=== PATIENT | male | born 1980 | race Caucasian/White ===

== ENCOUNTER → 2020-06-18 | Outpatient (CLI) | payer SELFPAY ==
[~2020-06-18] MED LIST: GLYB5TAB5 PO; INSU70DS SC; INSULANT SC
== END ==
LOC: M LABSMTC 08:41
PROVIDERS: ATTEND Pediatrics
DX: Z20.822 Contact with and (suspected) exposure to COVID-19 (principal)

== ENCOUNTER 2020-07-01 19:13 | Inpatient (IN) | payer SELFPAY ==
[~2020-07-01] VITALS: Ht 172.7 cm; Wt 89.4 kg
[2020-07-01 20:09] LABS: BASO % 0.2 % (0.0-1.0); EOS # 0.1 10^3/uL (0.0-0.5); EOS % 0.6 % (0.0-3.0); HEMATOCRIT 46.6 % (42.0-52.0); HEMOGLOBIN 16.3 g/dl (13.5-17.5); LYMPH # 1.3 10^3/uL (1.5-5.0); LYMPH % 7.1 % (24.0-44.0); MEAN CORPUSCULAR HEMOGLOBIN 30.8 pg (27.0-33.0); MEAN CORPUSCULAR VOLUME 87.9 fl (80.0-96.0); MONO # 1.3 10^3/uL (0.0-0.8); MONO % 7.5 % (0.0-5.0); NEUTROPHILS # 14.7 10^3/uL (1.5-8.5); NEUTROPHILS % 83.7 % (36.0-66.0); PLATELET COUNT, AUTOMATED 188 10^3/uL (150-450)
[2020-07-01 20:10] LABS: WHITE BLOOD COUNT 17.6 10^3/uL (4.0-10.0)
[2020-07-01] MEDS ORDERED: CLINDAMYCIN 900 MG in IV 1 EA IV ONE (20:30)
[2020-07-01] MEDS ORDERED: HumuLIN R (REGULAR) INSULIN (NovoLIN R) **100U/ML** PER UNIT IV ONE (20:30)
[2020-07-01] MEDS ORDERED: NS 1,000 ML IV ONE (20:30)
[2020-07-01] MEDS ORDERED: ONDANSETRON 4MG/2ML VIAL IV ONE (20:45)
[2020-07-01] MEDS ORDERED: MORPHINE 4 MG/ML 1ML VIAL/SYRINGE (J2270) IV ONE (20:45)
--- NOTE | 2020-07-01 20:45 | REPVR ---
PROCEDURE INFORMATION: Exam: US Scrotum Exam date and time: 07/01/2020 8:38 PM Age: 40 years old Clinical indication: Scrotum pain; Additional info: Left testicular pain TECHNIQUE: Imaging protocol: Real-time ultrasound of the scrotum and contents with color Doppler and image documentation. COMPARISON: No relevant prior studies available. FINDINGS: Right testicle: Right testis measures 4.2 x 2.1 x 3.3 cm. Normal flow. Resistive index 0.45. Normal texture. Left testicle: Left testis measures 5 x 2 x 3.1 cm. Normal texture. Mildly hypervascular flow using color flow Doppler. Resistive index 0.54. Epididymides: Right epididymal head measures 7.1 mm. Left epididymal head measures 9 mm. Scrotum: Normal. IMPRESSION: Mildly hypervascular left testis, findings which can indicate orchitis or changes related to torsion detorsion injury in the appropriate clinical setting. Electronically signed by: Shan Moore On 07/01/2020 20:45:25 PM
[2020-07-01 20:56] LABS: VENOUS BASE EXCESS -10.7 (-2.0-2.0); VENOUS HCO3 15.1 MEQ/L (23.0-27.0); VENOUS O2 SATURATION 74.9 % (60.0-80.0); VENOUS PARTIAL PRESSURE CO2 34.1 mmHg (38.0-50.0); VENOUS PARTIAL PRESSURE O2 39.3 mmHg (30.0-50.0); VENOUS PH 7.265 UNITS (7.330-7.430); VENOUS STANDARD HCO3 15.8 MEQ/L; VENOUS TOTAL CO2 16.2 MEQ/L (24.0-28.0)
[2020-07-01 21:14] LABS: CHLAMYDIA DNA AMPLIFICATION NEGATIVE (NEGATIVE); GC DNA AMPLIFICATION NEGATIVE (NEGATIVE)
[2020-07-01 21:20] LABS: HEMOGLOBIN A1c 8.5 %
--- NOTE | 2020-07-01 21:41 | HPEPDOC ---
General Date of Admission Date of Service: Jul 01, 2020 Other Providers no PCP, will need to be connected to care on discharge Attending Physician: Albert Perez MD Chief Complaint The patient is a 40-year-old male admitted with a reason for visit of Testicular Pain. Source: Patient Exam Limitations: No limitations History of Present Illness Mr. Holland reports that 2 days prior to admission he did notice a hard spot on what he believed was his left testicle. Yesterday about mid day he started to have more testicular and scrotal pain while at work. Today, the day of admission, he woke with worse pain and realized he needed to seek care. He denies any scrotal trauma or scratches or maceration to the area including jock itch. He does report he had an unprotected sexual encounter about 3 weeks ago. In discussing his past medical history he mentions that he was told he had type 2 diabetes in the past. He was treated with insulin at that time. After that he lost about 100 pounds and thought his diabetes went away. He has not had routine medical care for the last 10-12 years and there is no physician who is regularly monitoring his chemistries. Home Medications No Active Prescriptions or Reported Meds Allergies Coded Allergies: cefaclor (Verified Allergy, Intermediate, unknown, 07/01/20) Past Medical History Medical History Type 2 diabetes Surgical History Hernia repair when he was 6 weeks old Family History His father in his mid 50s but he did not have much contact with them for about 20 years he's not sure exactly why he . His mother at 33 after having recurrent breast cancer. He has a brother who is alive and well except fo r sequelae related to gunshot wounds. He has 3 sons who have no known medical problems. 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 He lives alone. A-FIB/CHADSVASC A-FIB History Current/History of A-Fib/PAF?: No Current PO Anticoag Therapy: No Review of Systems Constitutional: Reports: Malaise; Denies: Chills, Fever, Night Sweats Eyes: Denies: Pain, Vision change Skin: Reports: Other (redness on his left skip-scrotum); Denies: Itching, Breakdown Pulmonary: Denies: Dyspnea, Cough Cardiovascular: Reports: Lt Headedness; Denies: Chest Pain, Palpitations Gastrointestinal: Reports: Nausea, Vomiting; Denies: Abdominal Pain, Diarrhea Genitourinary: Denies: Dysuria, Frequency, Incontinence, Hematuria Endocrine: Denies: Polydipsia, Polyphagia, Polyuria Neurological: Denies: Weakness, Numbness, Change in speech, Confusion Psych: Reports: Mood Normal; Denies: Depression, Memory Issues Physical Examination General Exam: Positive: Alert, Cooperative, No Acute Distress (however he did vomit once in the middle of our interview) Eye Exam: Positive: PERRLA, Conjunctiva & lids normal, EOMI; Negative: Sclera icteric ENT Exam: Positive: Atraumatic, Mucous membr. moist/pink, Pharynx Normal Neck Exam: Positive: Supple; Negative: Lymphadenopathy Chest Exam: Positive: Clear to auscultation, Normal air movement Heart Exam: Positive: Tachycardic, Regular Rhythm, Normal S1, Normal S2; Negative: Murmurs, Rubs Abdomen Exam: Positive: Normal bowel sounds, Soft; Negative: Tenderness Extremity Exam: Positive: Normal pulses; Negative: Edema Skin Exam: Positive: Nl turgor and temperature; Negative: Breakdown, Lesion Neuro Exam: Positive: Normal Speech, Normal Tone Psych Exam: Positive: Mental status NL, Mood NL, Oriented x 3 Other physical findings Closer examination of his genital region reveals scrotal wall thickness and moderate erythema over the left hemiscrotum. The left testicle is mildly palpably tender, but is able to be moved away from the area of edema and erythema without significant pain. The left testicle and hemiscrotum are entirely normal. Cellulitis does not extend onto the penis or to the perineum at this time. The area was marked while the patient was in minor treatment so we can monitor for extension of the cellulitic changes. Vital Signs Vital Signs Date Time Temp Pulse Resp B/P (MAP) Pulse Ox O2 Delivery O2 Flow Rate FiO2 07/01/20 21:09 18 07/01/20 19:59 07/01/20 19:14 97.5 100 97 Room Air Laboratory Data Labs 24H Laboratory Tests 2 07/01/20 19:33: Chlamydia trachomatis DNA (AURA) NEGATIVE, Neisseria gonorrhoeae DNA (AURA) NEGATIVE, Trichomonas vaginalis (PCR) NOT DETECTED 07/01/20 19:34: Urine Color YELLOW, Urine Appearance CLEAR, Urine pH 5.0, Urine Specific [place] 1.029, Urine Protein 2+H, Urine Glucose (UA) 3+H, Urine Ketones 2+H, Urine Blood 1+H, Urine Nitrite NEGATIVE, Urine Bilirubin NEGATIVE, Urine Urobilinogen 0.2, Urine Leukocyte Esterase NEGATIVE, Urine WBC (Auto) 1, Urine RBC (Auto) 1, Urine Hyaline Casts (Auto) 0, Urine Bacteria (Auto) NEGATIVE, Urine Squamous Epithelial Cells 0, Urine Mucus (Auto) SMALL, Urine Sperm (Auto) 07/01/20 19:50: Immature Granulocyte % (Auto) 0.9, Neutrophils (%) (Auto) 83.7H, Lymphocytes (%) (Auto) 7.1L, Monocytes (%) (Auto) 7.5H, Eosinophils (%) (Auto) 0.6, Basophils (%) (Auto) 0.2, Neutrophils # (Auto) 14.7H, Lymphocytes # (Auto) 1.3L, Monocytes # (Auto) 1.3H, Eosinophils # (Auto) 0.1, Basophils # (Auto) 0.0, Nucleated Red Blood Cells % (auto) 0.0 07/01/20 20:36: Blood Gas Bicarbonate Standard 15.8, Venous Blood pH 7.265L, Venous Blood Partial Pressure CO2 34.1L, Venous Blood Partial Pressure O2 39.3, Venous Blood Total Carbon Dioxide 16.2L, Venous Blood HCO3 15.1L, Venous Blood Oxygen Saturation 74.9, Venous Blood Base Excess -10.7L, Estimated Mean Plasma Glucose 197H, Hemoglobin A1c 8.5 07/01/20 21:26: CBC/BMP Laboratory Tests 07/01/20 19:50 Microbiology Microbiology 07/01/20 Blood Culture, Received Pending 07/01/20 Blood Culture, Received Pending Problems (1) DKA (diabetic ketoacidoses) Status: Acute Problem Text: His DKA is mild to moderate. His blood glucose level is not that elevated at 274, however his pH is 7.2 on a VBG and his bicarbonate is 15. He has an anion gap of 23 but his osmolarity is at the upper end of normal. He is receiving a 1 L bolus of normal saline at this time. After that I will continue on 500 mL an hour of half normal saline with 20 mEq of potassium per liter. We'll monitor his chemistries at least every 2 hours. We'll monitor his fingersticks every 2 hours. As I think he is reasonably hydrated at this time, I'm going to start him with a dose of subcutaneous short acting insulin at 0.3 units per kilogram. Will monitor his blood glucose levels carefully. If this does not bring about improvement, I'll need to start him on insulin drip. (2) Cellulitis of scrotum Status: Acute Problem Text: This seemed to come on relatively quickly. I'm not sure the etiology, but it doesn't seem to be STD related, based on his labs at this time. Therefore I'm going to assume its typical skin nigel that somehow gained access to the area. Since he has an allergy to cephalosporins I'm going to use clindamycin. We'll need to monitor his carefully to make sure the clindamycin is effectively controlling his cellulitis. He does not have evidence of gangrene or necrosis at this time, however doesn't take very long in this area body for infection to spread. Certainly his elevated blood glucose levels make him more vulnerable to infection. (3) SIRS (systemic inflammatory response syndrome) Problem Text: He does meet SIRS criteria based on tachycardia and white count. I ordered a lactic acid level. I have ordered blood cultures to evaluate for sepsis. Plan / VTE VTE Prophylaxis Ordered?: Yes Plan Advanced Directives: Health Care Proxy (HCP) (he verbally identifies his cousin, Maria Saavedra , as his alternate medical decision maker if he was unable to make his own medical decisions. He wishes to be FULL code.) Albert Perez MD Jul 01, 2020 21:41
[2020-07-01] MEDS ORDERED: HumaLOG INSULIN (NovoLOG) PER UNIT SC STA ×2 (21:49→21:55)
[2020-07-01 21:57] LABS: OSMOLALITY SERUM 293 MOSM/KG (275-295)
[2020-07-01 22:04] LABS: ACETONE/KETONE > 46.00 MG/DL (<2.81)
[2020-07-01] MEDS ORDERED: MAALOX 30 ML SUSP *UDC PO PRN (22:15)
[2020-07-01 22:54] LABS: VENOUS BASE EXCESS -12.8 (-2.0-2.0); VENOUS HCO3 13.2 MEQ/L (23.0-27.0); VENOUS O2 SATURATION 69.8 % (60.0-80.0); VENOUS PARTIAL PRESSURE CO2 31.3 mmHg (38.0-50.0); VENOUS PARTIAL PRESSURE O2 38.2 mmHg (30.0-50.0); VENOUS PH 7.242 UNITS (7.330-7.430); VENOUS STANDARD HCO3 14.3 MEQ/L; VENOUS TOTAL CO2 14.1 MEQ/L (24.0-28.0)
[2020-07-01 22:56] LABS: MAGNESIUM LEVEL 2.3 MG/DL (1.8-2.4)
[2020-07-01] MEDS ORDERED: ONDANSETRON 4MG/2ML VIAL IV PRN (23:00)
[2020-07-01 23:18] LABS: BLOOD UREA NITROGEN 17 MG/DL (7-18); CREATININE FOR GFR 0.92 MG/DL (0.70-1.30); GLOMERULAR FILTRATION RATE > 60.0 (>60); GLUCOSE, FASTING 232 MG/DL (70-100)
[2020-07-01 23:19] LABS: ALBUMIN 3.4 GM/DL (3.2-5.2); CALCIUM LEVEL 8.6 MG/DL (8.5-10.1); CARBON DIOXIDE LEVEL 16 MEQ/L (21-32); CHLORIDE LEVEL 99 MEQ/L (98-107); PHOSPHORUS LEVEL 3.2 MG/DL (2.5-4.9); SODIUM LEVEL 131 MEQ/L (136-145)
[2020-07-02] MEDS: KCL 20MEQ IN 0.45NS 1000ML 1,000 ML IV SCH ×3 (00:34→02:00)
[2020-07-02] MEDS: ACETAMINOPHEN TAB 650MG DOSE (2X325MG) PO PRN ×4 (00:35→18:53)
[2020-07-02] MEDS ORDERED: HumuLIN R (REGULAR) INSULIN (NovoLIN R) **100U/ML** PER UNIT SC STA ×2 (00:41→06:25)
[2020-07-02 01:23] LABS: VENOUS BASE EXCESS -10.1 (-2.0-2.0); VENOUS HCO3 15.1 MEQ/L (23.0-27.0); VENOUS O2 SATURATION 95.2 % (60.0-80.0); VENOUS PARTIAL PRESSURE CO2 31.9 mmHg (38.0-50.0); VENOUS PH 7.293 UNITS (7.330-7.430); VENOUS STANDARD HCO3 16.6 MEQ/L; VENOUS TOTAL CO2 16.1 MEQ/L (24.0-28.0)
[2020-07-02 01:40] VITALS: BP 158/100
[2020-07-02 01:54] LABS: BLOOD UREA NITROGEN 15 MG/DL (7-18); CALCIUM LEVEL 8.1 MG/DL (8.5-10.1); CARBON DIOXIDE LEVEL 17 MEQ/L (21-32); CHLORIDE LEVEL 103 MEQ/L (98-107); CREATININE FOR GFR 0.86 MG/DL (0.70-1.30); GLOMERULAR FILTRATION RATE > 60.0 (>60); GLUCOSE, FASTING 168 MG/DL (70-100); POTASSIUM SERUM 4.3 MEQ/L (3.5-5.1); SODIUM LEVEL 132 MEQ/L (136-145)
[2020-07-02 04:00] VITALS: BP 166/90
[2020-07-02] MEDS ORDERED: CLINDAMYCIN 900 MG in IV 1 EA IV SCH (05:00)
[2020-07-02 05:42] LABS: VENOUS BASE EXCESS -9.8 (-2.0-2.0); VENOUS HCO3 14.4 MEQ/L (23.0-27.0); VENOUS O2 SATURATION 97.9 % (60.0-80.0); VENOUS PARTIAL PRESSURE CO2 27.6 mmHg (38.0-50.0); VENOUS PARTIAL PRESSURE O2 93.8 mmHg (30.0-50.0); VENOUS PH 7.334 UNITS (7.330-7.430); VENOUS STANDARD HCO3 16.8 MEQ/L; VENOUS TOTAL CO2 15.2 MEQ/L (24.0-28.0)
[2020-07-02 06:05] LABS: BASO % 0.2 % (0.0-1.0); EOS % 0.2 % (0.0-3.0); HEMATOCRIT 41.3 % (42.0-52.0); LYMPH # 1.3 10^3/uL (1.5-5.0); LYMPH % 8.3 % (24.0-44.0); MEAN CORPUSCULAR HEMOGLOBIN 30.1 pg (27.0-33.0); MEAN CORPUSCULAR HGB CONC 34.4 g/dl (32.0-36.5); MEAN CORPUSCULAR VOLUME 87.5 fl (80.0-96.0); MONO # 1.5 10^3/uL (0.0-0.8); MONO % 9.3 % (0.0-5.0); NEUTROPHILS # 12.7 10^3/uL (1.5-8.5); PLATELET COUNT, AUTOMATED 172 10^3/uL (150-450); RED BLOOD COUNT 4.72 10^6/uL (4.30-6.10)
[2020-07-02 06:08] LABS: BLOOD UREA NITROGEN 13 MG/DL (7-18); CALCIUM LEVEL 7.9 MG/DL (8.5-10.1); CARBON DIOXIDE LEVEL 16 MEQ/L (21-32); CHLORIDE LEVEL 103 MEQ/L (98-107); CREATININE FOR GFR 0.73 MG/DL (0.70-1.30); GLOMERULAR FILTRATION RATE > 60.0 (>60); GLUCOSE, FASTING 133 MG/DL (70-100); POTASSIUM SERUM 4.1 MEQ/L (3.5-5.1); SODIUM LEVEL 131 MEQ/L (136-145)
[2020-07-02 06:15] LABS: WHITE BLOOD COUNT 15.6 10^3/uL (4.0-10.0)
[2020-07-02 06:16] LABS: HEMOGLOBIN 14.2 g/dl (13.5-17.5)
[2020-07-02] MEDS: KCL 20MEQ IN D5/0.45NS 1000ML 1,000 ML IV SCH ×3 (07:05→15:32)
[2020-07-02 07:31] VITALS: BP 137/87
[2020-07-02 07:35] LABS: ACETONE/KETONE 28.39 MG/DL (<2.81)
[2020-07-02] MEDS ORDERED: ENOXAPARIN 40MG/0.4ML SYRINGE (J1650 PER 10MG) SC SCH (09:00)
[2020-07-02 09:17] LABS: ALBUMIN 2.9 GM/DL (3.2-5.2); BLOOD UREA NITROGEN 11 MG/DL (7-18); CARBON DIOXIDE LEVEL 16 MEQ/L (21-32); CHLORIDE LEVEL 103 MEQ/L (98-107); CREATININE FOR GFR 0.65 MG/DL (0.70-1.30); GLOMERULAR FILTRATION RATE > 60.0 (>60); GLUCOSE, FASTING 118 MG/DL (70-100); PHOSPHORUS LEVEL 1.7 MG/DL (2.5-4.9); POTASSIUM SERUM 4.4 MEQ/L (3.5-5.1); SODIUM LEVEL 131 MEQ/L (136-145)
[2020-07-02] MEDS: PANTOPRAZOLE 40MG VIAL (C9113 PER 1) IV SCH (09:20)
[2020-07-02] MEDS: MEROPENEM INJ 1 GM in IV 1 EA IV SCH ×2 (10:04→18:52)
--- NOTE | 2020-07-02 10:09 | IPNPDOC ---
Text Note Date of Service The patient was seen on 07/02/20. NOTE Subjective: Patient seen and examined at bedside. No acute overnight events reported. Patient has no new medical complaints this morning. Still notes pain in his scrotum . Objective: General: NAD, lying comfortably in bed HEENT: NC/AT, EOMI Lungs: CTA B/L Heart: +S1S2, tachy, possible systolic murmur Abd: soft, NT, +BS Ext: no edema A/P: 40 year old male for one day history of scrotal pain, no clear modifying factors, denies trauma, with past medical history of diabetes, poor medical follow up. #DKA - improving with subcutaneous insulin - will continue with FS and subcutaneous management #scrotal pain - ultrasound noted - discussed with urology - assistance appreciated - consultation pending - change antibiotics to meropenem/doxy - patient has cephalosporin allergy listed - he states this is from childhood and remembers a rash as a side effect #tachycardia - possible murmur - patient not aware of any history of murmur - check ECG - check echocardiogram #recent +COVID - respiratory panel on 06/18/20 was +COVID - patient states was routine test - patient had no specific respiratory symptoms - discussed with infection control - given asymptomatic and duration >21 days no additional precautions needed #DVT prophylaxis - lovenox ordered on admission ADDENDUM: Discussed with urology - continue to monitor for now. Re-assess in am, possible OR if worsens. NPO after midnight, hold Lovenox. 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 VS,[place], I+O VS, Rosa, I+O Laboratory Tests 07/01/20 19:50 07/01/20 22:45 07/02/20 01:18 07/02/20 05:32 07/02/20 08:34 Vital Signs Date Time Temp Pulse Resp B/P (MAP) Pulse Ox O2 Delivery O2 Flow Rate FiO2 07/02/20 07:31 98.4 124 18 137/87 (104) 97 Room Air I&O- Last 24 Hours up to 6 AM 07/02/20 06:00 Intake Total 1050 ml Output Total 0 ml Balance 1050 ml EUSEBIO SIEGEL MD Jul 02, 2020 10:09
[2020-07-02] MEDS: DOXYCYCLINE HYCLATE 100 MG in D5W MINI-BAG PLUS 100 ML IV SCH ×2 (10:49→22:56)
[2020-07-02 11:35] VITALS: BP 150/93
[2020-07-02] MEDS ORDERED: HumaLOG INSULIN (NovoLOG) PER UNIT SC ONE ×2 (12:30→15:00)
--- NOTE | 2020-07-02 14:29 | CR.PDOC ---
General Date of Consultation: Jul 02, 2020 Referring Provider: EUSEBIO SIEGEL MD Consultation REASON FOR CONSULTATION/CHIEF COMPLAINT: Left scrotal cellulites HISTORY OF PRESENT ILLNESS: Pt has a several day history of left scotal pain and swelling. The pain was getting progressively worse so he came to the ER. He was afebrile but had a wbc of 17.6 on admission. After Clindamycin overnight this came down to 15.6. Scrotal US 07/01/20 showed hypervascularity and no abscess formation. He had a h/o of diabetes but thought after he lost 100 lbs that he was cured but he was found on admission to be in ketoacidosis. He denies any urethral discharge, rectal pain, h/o kidney stones or other irritative or obstructive voiding symptoms. ALLERGIES: Please see below. HOME MEDICATIONS: Please see below. PAST MEDICAL HISTORY: -Type 2 Diabetes Untreated PAST SURGICAL HISTORY: -Hernia Repair FAMILY HISTORY: Father: mid 50's ? why, not in contact Mother: 33 from [place] Cancer Brother gunshot wound SOCIAL HISTORY: Marital status and/or living arrangements: Smoke 1ppd for 23 years Sober for one month- was a daily beer drinker REVIEW OF SYSTEMS: 12 system review neg except for HPI. Pt was tested for work and was COVID + 06/18/20. Quaranteened for 21 days. No complaints no. No pulmonary symptoms. Denies fever. PHYSICAL EXAMINATION: VITAL SIGNS: Please see below. GENERAL APPEARANCE: well developed, well nuroushed. Pt does not appear acutely ill. HEENT: Eyes PERRLA. No lymphadenopathy RESPIRATORY: Breathing without use of accesory muscles. Clear CARDIOVASCULAR: RRR ABDOMEN: Soft. NT. No erythema EXTREMITIES: No cyanosis, clubbing, or edema NEUROLOGICAL: Non focal PSYCHIATRIC: A+Ox3 with normal mood and affect Genitourinary: He is circumised with normal meatal opening and no discharge. His left scrotal sac is erythematous, warm to touch, and left testicle is enlar ged and acutely tender to touch. No scrotal thickening or fluctuation or masses felt. LABORATORY DATA: Please see below. 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 -Diabeic Ketoacidosis -Systemic inflammatory response syndrome Plan: -Await blood cultures -Change antibiotics to Rocephin/Mirepenam -Scrotal elevation -Area of erythema was demarcated and if erythema spreading urology to be called KATHERINE, also call for fever or worsening or clinical presentation -Re-evaluate in AM and if there is no significant improvement after antibiotic therapy consider scrotal exploration with possible incision and drainage since oftentimes Scrotal US may not show an abscess Vital Signs/I&O Vital Signs Date Time Temp Pulse Resp B/P (MAP) Pulse Ox O2 Delivery O2 Flow Rate FiO2 07/02/20 11:35 99.3 118 18 150/93 (112) 99 Room Air I&O- Last 24 Hours up to 6 AM 07/02/20 06:00 Intake Total 1050 ml Output Total 0 ml Balance 1050 ml Laboratory Data Labs 24H Laboratory Tests 2 07/01/20 19:33: Chlamydia trachomatis DNA (AURA) NEGATIVE, Neisseria gonorrhoeae DNA (AURA) NEGATIVE, Trichomonas vaginalis (PCR) NOT DETECTED 07/01/20 19:34: Urine Color YELLOW, Urine Appearance CLEAR, Urine pH 5.0, Urine Specific [place] 1.029, Urine Protein 2+H, Urine Glucose (UA) 3+H, Urine Ketones 2+H, Urine Blood 1+H, Urine Nitrite NEGATIVE, Urine Bilirubin NEGATIVE, Urine Urobilinogen 0.2, Urine Leukocyte Esterase NEGATIVE, Urine WBC (Auto) 1, Urine RBC (Auto) 1, Urine Hyaline Casts (Auto) 0, Urine Bacteria (Auto) NEGATIVE, Urine Squamous Epithelial Cells 0, Urine Mucus (Auto) SMALL, Urine Sperm (Auto) 07/01/20 19:50: Immature Granulocyte % (Auto) 0.9, Neutrophils (%) (Auto) 83.7H, Lymphocytes (%) (Auto) 7.1L, Monocytes (%) (Auto) 7.5H, Eosinophils (%) (Auto) 0.6, Basophils (%) (Auto) 0.2, Neutrophils # (Auto) 14.7H, Lymphocytes # (Auto) 1.3L, Monocytes # (Auto) 1.3H, Eosinophils # (Auto) 0.1, Basophils # (Auto) 0.0, Nucleated Red Blood Cells % (auto) 0.0 07/01/20 20:00: POC Glucose (Misc Panel) 274H, POC Sodium (Misc Panel) 131L, POC Potassium (Misc Panel) 4.0, POC Chloride (Misc Panel) 98, POC Total CO2 (Misc Panel) 15.0L, POC Blood Urea Nitrogen (Misc Panel 16, POC Ionized Calcium (Misc Panel) 4.5, POC Creatinine (Misc Panel) 0.6, POC Hematocrit (Misc Panel) 49.0 07/01/20 20:36: Blood Gas Bicarbonate Standard 15.8, Venous Blood pH 7.265L, Venous Blood Partial Pressure CO2 34.1L, Venous Blood Partial Pressure O2 39.3, Venous Blood Total Carbon Dioxide 16.2L, Venous Blood HCO3 15.1L, Venous Blood Oxygen S aturation 74.9, Venous Blood Base Excess -10.7L, Estimated Mean Plasma Glucose 197H, Hemoglobin A1c 8.5, Osmolality 293, Magnesium Level 2.3, B-Hydroxybutyrate > 46.00H 07/01/20 21:26: Coronavirus (COVID-19)(PCR) NEGATIVE 07/01/20 21:59: Bedside Glucose (Misc Panel) 220H 07/01/20 22:45: Blood Gas Bicarbonate Standard 14.3, Venous Blood pH 7.242L, Venous Blood Partial Pressure CO2 31.3L, Venous Blood Partial Pressure O2 38.2, Venous Blood Total Carbon Dioxide 14.1L, Venous Blood HCO3 13.2L, Venous Blood Oxygen Saturation 69.8, Venous Blood Base Excess -12.8L, Anion Gap 16, Glomerular Filtration Rate > 60.0, Lactic Acid Level 1.2, Calcium Level 8.6, Phosphorus Level 3.2, Albumin 3.4 07/02/20 00:06: Bedside Glucose (Misc Panel) 200H 07/02/20 01:18: Blood Gas Bicarbonate Standard 16.6, Venous Blood pH 7.293L, Venous Blood Partial Pressure CO2 31.9L, Venous Blood Partial Pressure O2 73.0H, Venous Blood Total Carbon Dioxide 16.1L, Venous Blood HCO3 15.1L, Venous Blood Oxygen Saturation 95.2H, Venous Blood Base Excess -10.1L, Anion Gap 12, Glomerular Filtration Rate > 60.0, Calcium Level 8.1L 07/02/20 01:57: Bedside Glucose (Misc Panel) 151H 07/02/20 04:01: Bedside Glucose (Misc Panel) 142H 07/02/20 05:32: Immature Granulocyte % (Auto) 1.0, Neutrophils (%) (Auto) 81.0H, Lymphocytes (%) (Auto) 8.3L, Monocytes (%) (Auto) 9.3H, Eosinophils (%) (Auto) 0.2, Basophils (%) (Auto) 0.2, Neutrophils # (Auto) 12.7H, Lymphocytes # (Auto) 1.3L, Monocytes # (Auto) 1.5H, Eosinophils # (Auto) 0.0, Basophils # (Auto) 0.0, Nucleated Red Blood Cells % (auto) 0.0, Blood Gas Bicarbonate Standard 16.8, Venous Blood pH 7.334, Venous Blood Partial Pressure CO2 27.6L, Venous Blood Partial Pressure O2 93.8H, Venous Blood Total Carbon Dioxide 15.2L, Venous Blood HCO3 14.4L, Venous Blood Oxygen Saturation 97.9H, Venous Blood Base Excess -9.8L, Anion Gap 12, Glomerular Filtration Rate > 60.0, Calcium Level 7.9L, C-Reactive Protein, Quantitative 15.80H, B-Hydroxybutyrate 28.39H 07/02/20 05:45: Bedside Glucose (Misc Panel) 144H 07/02/20 08:34: Anion Gap 12, Glomerular Filtration Rate > 60.0, Calcium Level 8.0L, Phosphorus Level 1.7#L, Albumin 2.9L 07/02/20 09:17: Bedside Glucose (Misc Panel) 127H 07/02/20 12:08: Bedside Glucose (Misc Panel) 214H 07/02/20 14:09: Bedside Glucose (Misc Panel) 277H CBC/BMP Laboratory Tests 07/01/20 19:50 07/01/20 22:45 07/02/20 01:18 07/02/20 05:32 07/02/20 08:34 Microbiology Microbiology 07/01/20 Blood Culture, Received Pending 07/01/20 Blood Culture, Received Pending 07/01/20 Blood Culture, Received Pending Allergies Coded Allergies: cefaclor (Verified Allergy, Intermediate, unknown, 07/01/20) Home Medications No Active Prescriptions or Reported Meds SIERRA MONTERO MD Jul 02, 2020 14:29
[2020-07-02 15:29] LABS: BLOOD UREA NITROGEN 9 MG/DL (7-18); CALCIUM LEVEL 8.1 MG/DL (8.5-10.1); CARBON DIOXIDE LEVEL 17 MEQ/L (21-32); CHLORIDE LEVEL 104 MEQ/L (98-107); CREATININE FOR GFR 0.76 MG/DL (0.70-1.30); GLOMERULAR FILTRATION RATE > 60.0 (>60); GLUCOSE, FASTING 235 MG/DL (70-100); POTASSIUM SERUM 3.9 MEQ/L (3.5-5.1); SODIUM LEVEL 131 MEQ/L (136-145)
[2020-07-02 15:39] VITALS: BP 139/91
[2020-07-02] MEDS ORDERED: GLUCOSE 4GM CHEW TABLET PO PRN (16:00)
[2020-07-02] MEDS ORDERED: DEXTROSE 50% 50 ML SYRINGE IV PRN (16:00)
[2020-07-02] MEDS ORDERED: GLUCAGON INJ 1MG VIAL SC PRN (16:00)
[2020-07-02] MEDS: HumaLOG INSULIN (NovoLOG) PER UNIT SC SCH (18:53)
[2020-07-02 20:00] VITALS: BP 134/87
[2020-07-02 21:45] LABS: ACETONE/KETONE 24.51 MG/DL (<2.81); BLOOD UREA NITROGEN 9 MG/DL (7-18); CALCIUM LEVEL 8.1 MG/DL (8.5-10.1); CARBON DIOXIDE LEVEL 18 MEQ/L (21-32); CHLORIDE LEVEL 105 MEQ/L (98-107); CREATININE FOR GFR 0.64 MG/DL (0.70-1.30); GLOMERULAR FILTRATION RATE > 60.0 (>60); GLUCOSE, FASTING 195 MG/DL (70-100); POTASSIUM SERUM 4.1 MEQ/L (3.5-5.1); SODIUM LEVEL 133 MEQ/L (136-145)
[2020-07-03] VITALS (13 sets, daily range): BP systolic 121–154; BP diastolic 75–93
[2020-07-03] MEDS: HumaLOG INSULIN (NovoLOG) PER UNIT SC SCH ×4 (00:42→18:25)
[2020-07-03] MEDS: ACETAMINOPHEN TAB 650MG DOSE (2X325MG) PO PRN ×2 (00:42→07:44)
[2020-07-03] MEDS: MEROPENEM INJ 1 GM in IV 1 EA IV SCH ×3 (01:51→18:23)
[2020-07-03 06:13] LABS: HEMOGLOBIN 13.6 g/dl (13.5-17.5); MEAN CORPUSCULAR HEMOGLOBIN 30.8 pg (27.0-33.0); MEAN CORPUSCULAR HGB CONC 34.9 g/dl (32.0-36.5); MEAN CORPUSCULAR VOLUME 88.2 fl (80.0-96.0); PLATELET COUNT, AUTOMATED 160 10^3/uL (150-450); RED BLOOD COUNT 4.42 10^6/uL (4.30-6.10); WHITE BLOOD COUNT 15.1 10^3/uL (4.0-10.0)
[2020-07-03 06:46] LABS: BLOOD UREA NITROGEN 7 MG/DL (7-18); CALCIUM LEVEL 8.2 MG/DL (8.5-10.1); CARBON DIOXIDE LEVEL 15 MEQ/L (21-32); CHLORIDE LEVEL 104 MEQ/L (98-107); CHOLESTEROL LEVEL 103 MG/DL (<200); CHOLESTEROL RISK RATIO 3.218 (<5); CREATININE FOR GFR 0.62 MG/DL (0.70-1.30); GLOMERULAR FILTRATION RATE > 60.0 (>60); GLUCOSE, FASTING 156 MG/DL (70-100); HDL CHOLESTEROL 32 MG/DL (>40); LDL CHOLESTEROL 54 MG/DL (<100); NON-HDL-C 71 MG/DL; POTASSIUM SERUM 4.1 MEQ/L (3.5-5.1); SODIUM LEVEL 134 MEQ/L (136-145); TRIGLYCERIDES LEVEL 83 MG/DL (<150)
--- NOTE | 2020-07-03 08:21 | IPNPDOC ---
Text Note Date of Service The patient was seen on 07/03/20. NOTE Subjective: Patient seen and examined at bedside. No acute overnight events reported. Patient has no new medical complaints this morning. Still notes pain in his scrotum . Objective: General: NAD, lying comfortably in bed HEENT: NC/AT, EOMI Lungs: CTA B/L Heart: +S1S2, tachy, possible systolic murmur Abd: soft, NT, +BS Ext: no edema A/P: 40 year old male for one day history of scrotal pain, no clear modifying factors, denies trauma, with past medical history of diabetes, poor medical follow up. #DKA - improving with subcutaneous insulin - will continue with FS and subcutaneous management #scrotal pain - fevers overnight - will check blood cultures, urine cultures - leukocytosis minimally improved - ultrasound noted - discussed with urology - assistance appreciated - antibiotics to meropenem/doxy - day #2 - patient has cephalosporin allergy listed - he states this is from childhood and remembers a rash as a side effect #tachycardia - possible murmur - patient not aware of any history of murmur - check ECG - check echocardiogram #recent +COVID - respiratory panel on 06/18/20 was +COVID - patient states was routine test - patient had no specific respiratory symptoms - discussed with infection control - given asymptomatic and duration >21 days no additional precautions needed #DVT prophylaxis - lovenox ordered on admission VS,Fishbone, I+O VS, Fishbone, I+O Laboratory Tests 07/02/20 08:34 07/02/20 14:50 07/02/20 21:00 07/03/20 06:01 Vital Signs Date Time Temp Pulse Resp B/P (MAP) Pulse Ox O2 Delivery O2 Flow Rate FiO2 07/03/20 07:46 97.6 118 16 154/81 (105) 99 Room Air I&O- Last 24 Hours up to 6 AM 07/03/20 06:00 Intake Total 1430 ml Output Total 3450 ml Balance -2020 ml EUSEBIO SIEGEL MD Jul 03, 2020 08:21
[2020-07-03] MEDS: PANTOPRAZOLE 40MG VIAL (C9113 PER 1) IV SCH (09:10)
[2020-07-03] MEDS ORDERED: propofoL 200 MG/20 ML VIAL As Ordered ONE (09:34)
[2020-07-03] MEDS ORDERED: LIDOCAINE 2% 100MG/5ML SDV (FOR ANES.) As Ordered ONE (09:34)
[2020-07-03] MEDS ORDERED: MIDAZOLAM INJ 2MG/2ML VIAL (J2250 PER 1MG) As Ordered ONE (09:34)
[2020-07-03] MEDS ORDERED: fentaNYL 100 MCG/2 ML INJECTION (J3010) As Ordered ONE ×2 (09:34→10:02)
[2020-07-03] MEDS ORDERED: SLF 3 ML SYR IV PRN (10:00)
[2020-07-03] MEDS ORDERED: dexameTHASONE 4 MG/ML 1ML VIAL (J1100 PER 1MG) As Ordered ONE (10:13)
[2020-07-03] MEDS ORDERED: ACETAMINOPHEN 1000MG 100ML IV BTL (OFIRMEV) (J0131 PER 10MG) As Ordered ONE (10:13)
[2020-07-03] MEDS ORDERED: ONDANSETRON 4MG/2ML VIAL As Ordered ONE (10:13)
[2020-07-03] MEDS ORDERED: KETOROLAC 60MG 2ML VIAL As Ordered ONE (10:13)
--- NOTE | 2020-07-03 11:28 | ROOPDOC ---
[facility] Report Of Operation Report of Operation DATE OF PROCEDURE: 07/03/20 PREPROCEDURE DIAGNOSES: Scrotal cellulitis with early Kimberli's gangrene POSTPROCEDURE DIAGNOSES: Scrotal abscess, scrotal cellulitis, and early Fou rnier's gangrene PROCEDURE: Incision and drainage of scrotum with debridement. Cystoscopy. SURGEON: Tonie Montero MD TRAILER STEERER: None ANESTHESIA: General ESTIMATED BLOOD LOSS: Approximately 3 mL. COMPLICATIONS: None REMARKS: Abscess was tracking of towards the left inguinal area and there was skin that needed to be debrided PROCEDURE NOTE: Patient is a 40-year-old gentleman who was admitted with left scrotal pain and an elevated white blood count. A testicular ultrasound showed hypervascularity. On examination yesterday he did have erythema of the scrotal skin and significant swelling. It was decided if this did not improve after antibiotics that we would bring him urgently to the operating room. Last night he spiked a temperature of 102 and this morning his exam was unchanged so was decided to bring him to the operating room. All alternatives, options, risks, benefits were discussed and informed consent was obtained. DESCRIPTION OF PROCEDURE: Sequential compression devices were placed and the patient is on antibiotic therapy. He was brought into the operating room and general anesthesia was induced. He was in the supine position and prepped and draped in usual fashion. A rectal exam had been done which showed no significant abnormalities. Next a horizontal incision was made over the left scrotal sac and copious brownish infected fluid came out. This was cultured. Next a Q-tip was used and this was found to be tunneling up towards the left inguinal region lateral to the testicle. There is also tunneled down into the scrotum. Once all fluid was drained debridement was then done of and infected tissue under the scrotal skin. The skin itself was slightly indurated but still appeared viable. 2 smaller incisions were made lower down and I made a tract up to the larger incision so that there would be areas that could drain if need be in the future. This was then irrigated with a irrigation machine. Quarter inch iodoform packing was then placed through the lower incisions to the larger incision and a small amount was also placed into the left sided tract. The wound was then closed loosely with 2-0 chromic sutures and the 2 bottom wounds were left open for further drainage if needed. A flexible cystoscopy was also done. The meatal opening was dilated using Crocher[place] sounds and then the flexible cystoscope was inserted. The urethra was noted to be open without any evidence of lesions or strictures. The prostatic urethra appeared to be nonobstructing. Upon entering the bladder both ureteral orifices were seen. There was no evidence of stones, erythematous patches, lesions, or other significant abnormalities. The patient tolerated the procedure well and was returned to the recovery room in stable condition. He is to continue on antibiotic therapy. TONIE MONTERO MD Jul 03, 2020 11:28
[2020-07-03] MEDS ORDERED: oxyCODONE 5MG TAB As Ordered ONE (11:29)
[2020-07-03] MEDS ORDERED: ONDANSETRON 4MG/2ML VIAL IV PRN (11:30)
[2020-07-03] MEDS ORDERED: LR 1,000 ML IV SCH (11:30)
[2020-07-03] MEDS ORDERED: fentaNYL 100 MCG/2 ML INJECTION (J3010) IV PRN (11:30)
[2020-07-03] MEDS ORDERED: HYDROMORPHONE HCL 0.5 MG/ 0.5 ML SYRINGE (J1170 PER 1) IV PRN (11:30)
[2020-07-03] MEDS ORDERED: oxyCODONE 5MG TAB PO PRN (11:30)
--- NOTE | 2020-07-03 11:55 | IPNPDOC ---
Text Note Date of Service The patient was seen on 07/03/20. NOTE Subjective: Patient seen and examined at bedside. No acute overnight events reported. Patient has no new medical complaints this morning. Still notes pain in his scrotum . Objective: General: NAD, lying comfortably in bed HEENT: NC/AT, EOMI Lungs: CTA B/L Heart: +S1S2, suspect systolic murmur, difficult to ascertain Abd: soft, NT, +BS Ext: no edema A/P: 40 year old male for one day history of scrotal pain, no clear modifying factors, denies trauma, with past medical history of diabetes, poor medical follow up. #DKA - resolved with subcutaneous insulin - will continue with FS and subcutaneous management #scrotal pain - fevers overnight - will check blood cultures, urine cultures - leukocytosis minimally improved - ultrasound noted - discussed with urology - assistance appreciated - plan for intervention today - antibiotics to meropenem/doxy - day #3 - patient has cephalosporin allergy listed - he states this is from childhood and remembers a rash as a side effect #tachycardia - sinus rhythm - check echocardiogram #recent +COVID - respiratory panel on 06/18/20 was +COVID - patient states was routine test - patient had no specific respiratory symptoms - discussed with infection control - given asymptomatic and duration >21 days no additional precautions needed #DVT prophylaxis - lovenox ordered on admission Dispo: continue IV antibiotics; OR today with urology; continue to follow as per urology; caution with uncontrolled diabetes - was borderline DKA on admission - treated with subcutaneous insulin VS,Fishbone, I+O VS, Fishbone, I+O Laboratory Tests 07/02/20 14:50 07/02/20 21:00 07/03/20 06:01 Vital Signs Date Time Temp Pulse Resp B/P (MAP) Pulse Ox O2 Delivery O2 Flow Rate FiO2 07/03/20 11:40 98.6 120 20 159/89 (112) 98 Room Air 07/03/20 11:15 12 I&O- Last 24 Hours up to 6 AM 07/03/20 06:00 Intake Total 1430 ml Output Total 3450 ml Balance -2020 ml EUSEBIO SIEGEL MD Jul 03, 2020 11:55
[2020-07-03] MEDS: DOXYCYCLINE HYCLATE 100 MG in D5W MINI-BAG PLUS 100 ML IV SCH ×2 (12:19→22:35)
[2020-07-03] MEDS: MORPHINE 2 MG/ML 1ML VIAL (J2270) IV PRN ×3 (12:42→22:35)
[2020-07-03] MEDS: SLF 3 ML SYR IV SCH ×2 (14:16→22:36)
[2020-07-03 14:40] LABS: FREE THYROXINE INDEX 2.9 % (1.4-3.8); T UPTAKE 39 % (33-40); THYROXINE (T4) 7.4 UG/DL (4.5-12.0)
[2020-07-03 19:49] LABS: BLOOD UREA NITROGEN 12 MG/DL (7-18); CALCIUM LEVEL 8.6 MG/DL (8.5-10.1); CARBON DIOXIDE LEVEL 15 MEQ/L (21-32); CHLORIDE LEVEL 105 MEQ/L (98-107); CREATININE FOR GFR 0.86 MG/DL (0.70-1.30); GLOMERULAR FILTRATION RATE > 60.0 (>60); GLUCOSE, FASTING 296 MG/DL (70-100); POTASSIUM SERUM 4.8 MEQ/L (3.5-5.1); SODIUM LEVEL 134 MEQ/L (136-145)
[2020-07-04] MEDS: HumaLOG INSULIN (NovoLOG) PER UNIT SC SCH ×5 (00:56→21:00)
[2020-07-04 02:00] VITALS: BP 130/80
[2020-07-04] MEDS: MEROPENEM INJ 1 GM in IV 1 EA IV SCH ×3 (02:55→17:55)
[2020-07-04] MEDS: MORPHINE 2 MG/ML 1ML VIAL (J2270) IV PRN ×3 (03:03→13:05)
[2020-07-04 06:00] VITALS: BP 148/89
[2020-07-04] MEDS: SLF 3 ML SYR IV SCH ×3 (06:21→21:05)
[2020-07-04 06:23] LABS: BASO % 0.1 % (0.0-1.0); EOS % 0.3 % (0.0-3.0); HEMATOCRIT 38.1 % (42.0-52.0); HEMOGLOBIN 13.3 g/dl (13.5-17.5); LYMPH # 1.4 10^3/uL (1.5-5.0); LYMPH % 9.7 % (24.0-44.0); MEAN CORPUSCULAR HEMOGLOBIN 31.1 pg (27.0-33.0); MEAN CORPUSCULAR HGB CONC 34.9 g/dl (32.0-36.5); MEAN CORPUSCULAR VOLUME 89.2 fl (80.0-96.0); MONO # 1.1 10^3/uL (0.0-0.8); MONO % 7.4 % (0.0-5.0); NEUTROPHILS % 81.4 % (36.0-66.0); PLATELET COUNT, AUTOMATED 182 10^3/uL (150-450); RED BLOOD COUNT 4.27 10^6/uL (4.30-6.10)
[2020-07-04 06:30] LABS: WHITE BLOOD COUNT 14.7 10^3/uL (4.0-10.0)
[2020-07-04 06:45] LABS: BLOOD UREA NITROGEN 11 MG/DL (7-18); CALCIUM LEVEL 8.6 MG/DL (8.5-10.1); CARBON DIOXIDE LEVEL 16 MEQ/L (21-32); CHLORIDE LEVEL 106 MEQ/L (98-107); CREATININE FOR GFR 0.61 MG/DL (0.70-1.30); GLOMERULAR FILTRATION RATE > 60.0 (>60); GLUCOSE, FASTING 182 MG/DL (70-100); POTASSIUM SERUM 4.1 MEQ/L (3.5-5.1); SODIUM LEVEL 135 MEQ/L (136-145)
--- NOTE | 2020-07-04 07:57 | ECGEPIP ---
[facility] Test Date: 2020-07-03 Pat Name: NOLVIA WHEELER Department: Room: [place] [address] Gender: Male Lan Manager: FRANCOISE : 1980 Requested By: EUSEBIO Gtz Order Number: [id number] Reading MD: Asim Shafer Measurements Intervals [place] Rate: 122 P: 33 WI: 148 QRS: -4 QRSD: 82 T: -6 QT: 330 QTc: 470 Interpretive Statements Sinus tachycardia Inferior infarct , age undetermined Delayed anterior R wave progression Comparison tracing not on file Electronically Signed on 07-04-2020 7:57:02 EST by Asim Shafer
[2020-07-04] MEDS: PANTOPRAZOLE 40MG VIAL (C9113 PER 1) IV SCH (09:09)
[2020-07-04] MEDS: DOXYCYCLINE HYCLATE 100 MG in D5W MINI-BAG PLUS 100 ML IV SCH ×2 (11:49→23:48)
--- NOTE | 2020-07-04 12:54 | IPNPDOC ---
Subjective Review oF Systems Chief Complaint The patient is a 40-year-old male admitted with a reason for visit of Cellulitis Of Scrotum, Dka. Events since Last Encounter Patient has been afebrile overnight. He has no complaints. He has been resting comfortably. I explained is a patient that Dr. Bills is requested I remove the drains from the scrotal wound. He voices agreement with this. Results of abscess culture are pending. Objective Physical Examination Heart Exam: Positive: Tachycardic, Regular Rhythm, Normal S1, Normal S2; Negative: Murmurs, Rubs Other physical findings General: Alert male lying in bed in no distress Genitalia: Dressing is removed from scrotum. 2 packing gauzes are removed from the scrotal wounds as requested by Dr. Bills. Vital Signs/I&O Vital Signs Date Time Temp Pulse Resp B/P (MAP) Pulse Ox O2 Delivery O2 Flow Rate FiO2 07/04/20 09:20 16 07/04/20 06:00 98.5 100 148/89 (108) 99 Room Air 07/03/20 11:15 12 I&O- Last 24 Hours up to 6 AM0 07/04/20 06:00 Intake Total 2810 ml Output Total 2450 ml Balance 360 ml Laboratory Data Labs 24H Laboratory Tests 2 07/03/20 15:31: Lab Scanned Report Miscellaneous Lab 07/03/20 18:14: Bedside Glucose (Misc Panel) 266H 07/03/20 19:00: Anion Gap 14, Glomerular Filtration Rate > 60.0, Calcium Level 8.6 07/04/20 00:13: Bedside Glucose (Misc Panel) 212H 07/04/20 05:52: Bedside Glucose (Misc Panel) 214H 07/04/20 05:53: Immature Granulocyte % (Auto) 1.1, Neutrophils (%) (Auto) 81.4H, Lymphocytes (%) (Auto) 9.7L, Monocytes (%) (Auto) 7.4H, Eosinophils (%) (Auto) 0.3, Basophils (%) (Auto) 0.1, Neutrophils # (Auto) 12.0H, Lymphocytes # (Auto) 1.4L, Monocytes # (Auto) 1.1H, Eosinophils # (Auto) 0.0, Basophils # (Auto) 0.0, Nucleated Red Blood Cells % (auto) 0.0, Anion Gap 13, Glomerular Filtration Rate > 60.0, Calcium Level 8.6 07/04/20 11:32: Bedside Glucose (Misc Panel) 193H CBC/BMP Laboratory Tests 07/03/20 19:00 07/04/20 05:53 FSBS Laboratory Tests Test 07/03/20 18:14 07/04/20 00:13 07/04/20 05:52 07/04/20 11:32 Range/Units Bedside Glucose (Misc Panel) 266 212 214 193 70-105 MG/DL Microbiology Microbiology 07/03/20 Abscess Culture, Received Pending 07/03/20 Anaerobic Culture, Received Pending 07/01/20 Blood Culture - Preliminary, Resulted No Growth after 48 hours. All Specime... 07/01/20 Blood Culture - Preliminary, Resulted No Growth after 48 hours. All Specime... 07/01/20 Blood Culture - Preliminary, Resulted No Growth after 48 hours. All Specime... Assessment/Plan Date Seen The patient was seen on 07/04/20. Patient Summary Impression: Scrotal abscess 1 day post incision and drainage, doing well Plan/VTE VTE Prophylaxis Ordered?: Yes Plan Continue antibiotics and close observation patient's scrotal wound ISA JIMENES MD Jul 04, 2020 12:54
[2020-07-04] MEDS ORDERED: NORCO, ANEXSIA 5/325MG TABLET (HYDROcodone/ACETAMINOPHEN) PO PRN (13:00)
[2020-07-04] MEDS ORDERED: SODIUM CHLORIDE 0.9% 1000ML IV ONE (13:00)
--- NOTE | 2020-07-04 13:03 | IPNPDOC ---
Subjective Date Seen The patient was seen on 07/04/20. Subjective Chief Complaint/HPI No complaints this morning. Except for scrotal discomfort. Objective Physical Examination General Exam: Positive: Alert, Cooperative, No Acute Distress Eye Exam: Positive: PERRLA, Conjunctiva & lids normal, EOMI; Negative: Sclera icteric ENT Exam: Positive: Atraumatic, Mucous membr. moist/pink, Pharynx Normal Neck Exam: Positive: Supple; Negative: JVD, thyromegaly Chest Exam: Positive: Clear to auscultation, Normal air movement Heart Exam: Positive: Rate Normal, Regular Rhythm, Normal S1, Normal S2; Negative: Murmurs, Rubs Abdomen Exam: Positive: Normal bowel sounds, Soft; Negative: Tenderness Male Exam: Positive: Tenderness Extremity Exam: Negative: Clubbing, Cyanosis, Edema Skin Exam: Positive: Nl turgor and temperature Neuro Exam: Positive: Normal Speech, Normal Tone Psych Exam: Positive: Mental status NL, Mood NL, Oriented x 3 Assessment /Plan Assessment 40 year old male with PMH of DM not on any meds, presented to ED with one day history of scrotal pain, no clear modifying factors, denies trauma, poor medical follow up. He was found to have scrotals cellulitis with Scrotal abscess, scrotal cellulitis, and early Kimberli's gangrene. S/p Incision and drainage of scrotum with debridement and Cystoscopy. He was also in early DKA. #DKA resolving though bicarb is still low. continue levemir and lispro will give 1 L bolus. Scrotal abscess, scrotal cellulitis, and early Kimberli's gangrene. S/p Incision and drainage of scrotum with debridement and Cystoscopy. He was also in early DKA. antibiotics to meropenem/doxy [place]. Recent +COVID respiratory panel on 06/18/20 was +COVID patient states was routine test - patient had no specific respiratory symptoms discussed with infection control - given asymptomatic and duration >15 days no additional precautions needed DVT prophylaxis lovenox Plan/VTE VTE Prophylaxis Ordered?: Yes VS, I&O, 24H, Fishbone Vital Signs/I&O Vital Signs Date Time Temp Pulse Resp B/P (MAP) Pulse Ox O2 Delivery O2 Flow Rate FiO2 07/04/20 09:20 16 07/04/20 06:00 98.5 100 148/89 (108) 99 Room Air 07/03/20 11:15 12 I&O- Last 24 Hours up to 6 AM 07/04/20 06:00 Intake Total 2810 ml Output Total 2450 ml Balance 360 ml Laboratory Data 24H LABS Laboratory Tests 2 07/03/20 15:31: Lab Scanned Report Miscellaneous Lab 07/03/20 18:14: Bedside Glucose (Misc Panel) 266H 07/03/20 19:00: Anion Gap 14, Glomerular Filtration Rate > 60.0, Calcium Level 8.6 07/04/20 00:13: Bedside Glucose (Misc Panel) 212H 07/04/20 05:52: Bedside Glucose (Misc Panel) 214H 07/04/20 05:53: Immature Granulocyte % (Auto) 1.1, Neutrophils (%) (Auto) 81.4H, Lymphocytes (%) (Auto) 9.7L, Monocytes (%) (Auto) 7.4H, Eosinophils (%) (Auto) 0.3, Basophils (%) (Auto) 0.1, Neutrophils # (Auto) 12.0H, Lymphocytes # (Auto) 1.4L, Monocytes # (Auto) 1.1H, Eosinophils # (Auto) 0.0, Basophils # (Auto) 0.0, Nucleated Red Blood Cells % (auto) 0.0, Anion Gap 13, Glomerular Filtration Rate > 60.0, Calcium Level 8.6 07/04/20 11:32: Bedside Glucose (Misc Panel) 193H CBC/BMP Laboratory Tests 07/03/20 19:00 07/04/20 05:53 Microbiology Microbiology 07/03/20 Abscess Culture, Received Pending 07/03/20 Anaerobic Culture, Received Pending 07/01/20 Blood Culture - Preliminary, Resulted No Growth after 48 hours. All Specime... 07/01/20 Blood Culture - Preliminary, Resulted No Growth after 48 hours. All Specime... 07/01/20 Blood Culture - Preliminary, Resulted No Growth after 48 hours. All Specime... NICOLE AMAYA MD Jul 04, 2020 13:03
[2020-07-04 14:00] VITALS: BP 144/88
[2020-07-04] MEDS: LEVEMIR (INSULIN DETEMIR) 1 UNITS/0.01ML SC SCH (14:00)
[2020-07-04] MEDS: NORCO, ANEXSIA 5/325MG TABLET (HYDROcodone/ACETAMINOPHEN) PO PRN ×2 (16:09→23:47)
[2020-07-04 22:00] VITALS: BP 136/86
[2020-07-05] MEDS: MEROPENEM INJ 1 GM in IV 1 EA IV SCH ×3 (02:00→18:12)
[2020-07-05 05:51] LABS: BASO # 0.1 10^3/uL (0.0-0.2); BASO % 0.6 % (0.0-1.0); EOS # 0.2 10^3/uL (0.0-0.5); EOS % 1.8 % (0.0-3.0); HEMATOCRIT 38.4 % (42.0-52.0); LYMPH # 2.5 10^3/uL (1.5-5.0); LYMPH % 29.1 % (24.0-44.0); MEAN CORPUSCULAR HEMOGLOBIN 30.2 pg (27.0-33.0); MEAN CORPUSCULAR HGB CONC 33.9 g/dl (32.0-36.5); MEAN CORPUSCULAR VOLUME 89.3 fl (80.0-96.0); MONO # 0.9 10^3/uL (0.0-0.8); MONO % 10.2 % (0.0-5.0); NEUTROPHILS # 4.8 10^3/uL (1.5-8.5); PLATELET COUNT, AUTOMATED 191 10^3/uL (150-450); WHITE BLOOD COUNT 8.4 10^3/uL (4.0-10.0)
[2020-07-05 06:00] VITALS: BP 133/86
[2020-07-05 06:07] LABS: BLOOD UREA NITROGEN 14 MG/DL (7-18); CALCIUM LEVEL 8.4 MG/DL (8.5-10.1); CARBON DIOXIDE LEVEL 23 MEQ/L (21-32); CHLORIDE LEVEL 107 MEQ/L (98-107); CREATININE FOR GFR 0.61 MG/DL (0.70-1.30); GLOMERULAR FILTRATION RATE > 60.0 (>60); GLUCOSE, FASTING 207 MG/DL (70-100); POTASSIUM SERUM 4.3 MEQ/L (3.5-5.1); SODIUM LEVEL 139 MEQ/L (136-145)
[2020-07-05] MEDS: SLF 3 ML SYR IV SCH ×3 (06:07→23:30)
[2020-07-05] MEDS: PANTOPRAZOLE 40MG TAB (PROTONIX) PO SCH (08:11)
[2020-07-05] MEDS: NORCO, ANEXSIA 5/325MG TABLET (HYDROcodone/ACETAMINOPHEN) PO PRN ×3 (08:11→21:33)
[2020-07-05] MEDS: HumaLOG INSULIN (NovoLOG) PER UNIT SC SCH ×4 (08:12→20:52)
[2020-07-05] MEDS: LEVEMIR (INSULIN DETEMIR) 1 UNITS/0.01ML SC SCH (08:12)
--- NOTE | 2020-07-05 08:36 | IPNPDOC ---
Subjective Review oF Systems Chief Complaint The patient is a 40-year-old male admitted with a reason for visit of Cellulitis Of Scrotum, Dka. Events since Last Encounter The patient has no complaints this morning. Vital signs reveal that he has been afebrile last 24 hours. Wound cultures are pending Blood cultures are negative to date Objective Physical Examination General Exam: Alert, Cooperative, No Acute Distress Heart Exam: Positive: Rate Normal, Regular Rhythm, Normal S1, Normal S2; Negative: Murmurs, Rubs Other physical findings Scrotal dressing is removed. There is erythema and edema of the scrotal wall. An area of superficial necrotic skin is present measuring approximately 1 centimeter and a half greatest dimension anterior midline scrotum. There is no fluctuance. There is no mass. There is minimal tenderness. Vital Signs/I&O Vital Signs Date Time Temp Pulse Resp B/P (MAP) Pulse Ox O2 Delivery O2 Flow Rate FiO2 07/05/20 08:11 16 07/05/20 06:00 97.0 93 133/86 (102) 99 Room Air 07/03/20 11:15 12 I&O- Last 24 Hours up to 6 AM 07/05/20 06:00 Intake Total 2150 ml Output Total 1700 ml Balance 450 ml Laboratory Data Labs 24H Laboratory Tests 2 07/04/20 11:32: Bedside Glucose (Misc Panel) 193H 07/04/20 16:49: Bedside Glucose (Misc Panel) 271H 07/04/20 20:33: Bedside Glucose (Misc Panel) 206H 07/05/20 05:26: Immature Granulocyte % (Auto) 1.3, Neutrophils (%) (Auto) 57.0, Lymphocytes (%) (Auto) 29.1, Monocytes (%) (Auto) 10.2H, Eosinophils (%) (Auto) 1.8, Basophils (%) (Auto) 0.6, Neutrophils # (Auto) 4.8, Lymphocytes # (Auto) 2.5, Monocytes # (Auto) 0.9H, Eosinophils # (Auto) 0.2, Basophils # (Auto) 0.1, Nucleated Red Blood Cells % (auto) 0.0, Anion Gap 9, Glomerular Filtration Rate > 60.0, Calcium Level 8.4L CBC/BMP Laboratory Tests 07/05/20 05:26 FSBS Laboratory Tests Test 07/04/20 11:32 07/04/20 16:49 07/04/20 20:33 Range/Units [facility] 193 271 206 70-105 MG/DL Microbiology Microbiology 07/03/20 Abscess Culture, Received Pending 07/03/20 Anaerobic Culture, Received Pending 07/01/20 Blood Culture - Preliminary, Resulted No Growth after 72 hours. All specime... 07/01/20 Blood Culture - Preliminary, Resulted No Growth after 72 hours. All specime... 07/01/20 Blood Culture - Preliminary, Resulted No Growth after 72 hours. All specime... Assessment/Plan Date Seen The patient was seen on 07/05/20. Plan/VTE VTE Prophylaxis Ordered?: Yes Plan Assessment: 1. Scrotal abscess post-incision and drainage, wound culture pending Plan: 1. Continue antibiotics and close observation 2. Adjust antibiotic score and results of wound culture when available. I discussed this with the patient's attending physician M with the patient. ISA JIMENES MD Jul 05, 2020 08:36
--- NOTE | 2020-07-05 10:02 | IPNPDOC ---
Subjective Date Seen The patient was seen on 07/05/20. Subjective Chief Complaint/HPI No complaints this morning. Pain controlled, drainage less. no fever or chills, sugars better controlled. Objective Physical Examination General Exam: Positive: Alert, Cooperative, No Acute Distress Eye Exam: Positive: PERRLA, Conjunctiva & lids normal, EOMI; Negative: Sclera icteric ENT Exam: Positive: Atraumatic, Mucous membr. moist/pink, Pharynx Normal Neck Exam: Positive: Supple; Negative: JVD, thyromegaly Chest Exam: Positive: Clear to auscultation, Normal air movement Heart Exam: Positive: Rate Normal, Regular Rhythm, Normal S1, Normal S2; Negative: Murmurs, Rubs Abdomen Exam: Positive: Normal bowel sounds, Soft; Negative: Tenderness Male Exam: Positive: Tenderness Extremity Exam: Negative: Clubbing, Cyanosis, Edema Skin Exam: Positive: Nl turgor and temperature Neuro Exam: Positive: Normal Speech, Normal Tone Psych Exam: Positive: Mental status NL, Mood NL, Oriented x 3 Assessment /Plan Assessment 40 year old male with PMH of DM not on any meds, presented to ED with one day history of scrotal pain, no clear modifying factors, denies trauma, poor medical follow up. He was found to have scrotals cellulitis with Scrotal abscess, scrotal cellulitis, and early Kimberli's gangrene. S/p Incision and drainage of scrotum with debridement and Cystoscopy. He was also in early DKA. DKA resolved. continue levemir and lispro Scrotal abscess, scrotal cellulitis, and early Kimberli's gangrene. still has some necrotic tissue. S/p Incision and drainage of scrotum with debridement and Cystoscopy. He was also in early DKA. antibiotics to meropenem/doxy cultures still pending [place]. Urology following. Recent +COVID respiratory panel on 06/18/20 was +COVID patient states was routine test - patient had no specific respiratory symptoms discussed with infection control - given asymptomatic and duration >15 days no additional precautions needed DVT prophylaxis lovenox Plan/VTE VTE Prophylaxis Ordered?: Yes VS, I&O, 24H, Fishbone Vital Signs/I&O Vital Signs Date Time Temp Pulse Resp B/P (MAP) Pulse Ox O2 Delivery O2 Flow Rate FiO2 07/05/20 08:41 16 07/05/20 06:00 97.0 93 133/86 (102) 99 Room Air 07/03/20 11:15 12 I&O- Last 24 Hours up to 6 AM 07/05/20 06:00 Intake Total 2150 ml Output Total 1700 ml Balance 450 ml Laboratory Data 24H LABS Laboratory Tests 2 07/04/20 11:32: Bedside Glucose (Misc Panel) 193H 07/04/20 16:49: Bedside Glucose (Misc Panel) 271H 07/04/20 20:33: Bedside Glucose (Misc Panel) 206H 07/05/20 05:26: Immature Granulocyte % (Auto) 1.3, Neutrophils (%) (Auto) 57.0, Lymphocytes (%) (Auto) 29.1, Monocytes (%) (Auto) 10.2H, Eosinophils (%) (Auto) 1.8, Basophils (%) (Auto) 0.6, Neutrophils # (Auto) 4.8, Lymphocytes # (Auto) 2.5, Monocytes # (Auto) 0.9H, Eosinophils # (Auto) 0.2, Basophils # (Auto) 0.1, Nucleated Red Blood Cells % (auto) 0.0, Anion Gap 9, Glomerular Filtration Rate > 60.0, Calcium Level 8.4L CBC/BMP Laboratory Tests 07/05/20 05:26 Microbiology Microbiology 07/03/20 Abscess Culture, Received Pending 07/03/20 Anaerobic Culture, Received Pending 07/01/20 Blood Culture - Preliminary, Resulted No Growth after 72 hours. All specime... 07/01/20 Blood Culture - Preliminary, Resulted No Growth after 72 hours. All specime... 07/01/20 Blood Culture - Preliminary, Resulted No Growth after 72 hours. All specime... NICOLE AMAYA MD Jul 05, 2020 10:02
--- NOTE | 2020-07-05 11:20 | ECHO ---
DATE OF PROCEDURE: 07/03/2020 Age: 40 Gender: Male Height: 68 inches Weight: 191 pounds Body Surface Area: 2.01 m2 PATIENT LOCATION: Inpatient PCU Room 3229 REFERRING PHYSICIAN: Robin Beaver MD. INDICATION: Murmur. MEASUREMENTS: 2D Measurements: RV 4.0 cm. LV 4.7 cm Septum 1.2 cm Posterior wall 1.2 cm Aortic Root 3.4 cm LA 4.2 cm LVEF 65% Doppler Measurements: AV 1.89 m/s LVOT - 0.08 m/s MV-E 110, A 135, EA ratio 0.8 E prime medial 7, A prime medial 11, E prime lateral 7 Average E/E prime ratio 15.7/PCWP - 24 mmHg PV 1.1 m/s Pulmonary artery acceleration time 100 msec RVSP 32-37 mmHg IVC - 1.8 cm COMMENTS: Sinus tachycardia without intraventricular conduction disturbance. M-mode and 2-dimensional echocardiography was performed with pulse, continuous wave, color flow, and tissue Doppler studies. Slightly challenging study in light of the patient's body habitus but diagnostically useful information was still obtained. Borderline left ventricular hypertrophy with normal wall motion. Slightly dilated left atrium with grade 1 LV diastolic dysfunction and currently elevated mean left atrial pressure. Right heart chamber sizes were upper limits of normal with normal wall motion with Doppler evidence of mild pulmonary hypertension. Normal IVC size and collapse against an elevated central venous pressure. Normal aortic dimensions. Three equal size aortic cusps with asymmetrically thickened left coronary cusp but no significant left ventricular outflow tract obstruction and no more than trace aortic insufficiency. Normal appearing mitral valvular apparatus with trace (physiologic) mitral insufficiency. Normal appearing tricuspid valve with very mild insufficiency (physiologic). No separate intracardiac mass or pericardial effusion. It would be prudent to obtain a complete blood count, sedimentation rate, and at least two sets of blood cultures 12 hours apart in light of the patient's aortic valve findings. [facility]
[2020-07-05] MEDS: DOXYCYCLINE HYCLATE 100 MG in D5W MINI-BAG PLUS 100 ML IV SCH ×2 (12:20→23:30)
[2020-07-05 14:00] VITALS: BP 146/101
[2020-07-05 22:00] VITALS: BP 140/86
[2020-07-06] MEDS: MEROPENEM INJ 1 GM in IV 1 EA IV SCH ×3 (02:30→18:31)
[2020-07-06 06:00] VITALS: BP 140/88
[2020-07-06 07:06] LABS: HEMATOCRIT 37.1 % (42.0-52.0); HEMOGLOBIN 12.9 g/dl (13.5-17.5); MEAN CORPUSCULAR HEMOGLOBIN 30.4 pg (27.0-33.0); MEAN CORPUSCULAR HGB CONC 34.8 g/dl (32.0-36.5); MEAN CORPUSCULAR VOLUME 87.3 fl (80.0-96.0); PLATELET COUNT, AUTOMATED 216 10^3/uL (150-450); RED BLOOD COUNT 4.25 10^6/uL (4.30-6.10); WHITE BLOOD COUNT 6.8 10^3/uL (4.0-10.0)
[2020-07-06 07:26] LABS: BLOOD UREA NITROGEN 10 MG/DL (7-18); CALCIUM LEVEL 8.4 MG/DL (8.5-10.1); CARBON DIOXIDE LEVEL 23 MEQ/L (21-32); CHLORIDE LEVEL 105 MEQ/L (98-107); CREATININE FOR GFR 0.54 MG/DL (0.70-1.30); GLOMERULAR FILTRATION RATE > 60.0 (>60); GLUCOSE, FASTING 199 MG/DL (70-100); POTASSIUM SERUM 3.5 MEQ/L (3.5-5.1); SODIUM LEVEL 138 MEQ/L (136-145)
--- NOTE | 2020-07-06 07:41 | IPNPDOC ---
Subjective Review oF Systems Chief Complaint The patient is a 40-year-old male admitted with a reason for visit of Cellulitis Of Scrotum, Dka. Events since Last Encounter The patient states that he has less discomfort. Rested well last night Afebrile last 24 hours Wound culture is Staph coag negative Objective Physical Examination General Exam: Alert, Cooperative, No Acute Distress Heart Exam: Positive: Rate Normal, Regular Rhythm, Normal S1, Normal S2; Negative: Murmurs, Rubs Other physical findings scrotal edema and erythema are less, not tender to exam, no masses nor areas of fluctuance present. There is an area of eschar in the midline anterior scrotal wall that has not changed in size since exam yesterday Vital Signs/I&O Vital Signs Date Time Temp Pulse Resp B/P (MAP) Pulse Ox O2 Delivery O2 Flow Rate FiO2 07/06/20 06:00 97.2 101 17 140/88 (105) 99 Room Air 07/03/20 11:15 12 I&O- Last 24 Hours up to 6 AM 07/06/20 06:00 Intake Total 2520 ml Output Total 1550 ml Balance 970 ml Laboratory Data Labs 24H Laboratory Tests 2 07/05/20 11:48: Bedside Glucose (Misc Panel) 203H 07/05/20 16:54: Bedside Glucose (Misc Panel) 247H 07/05/20 19:51: Bedside Glucose (Misc Panel) 216H 07/06/20 06:47: Neutrophils (%) (Auto) , Nucleated Red Blood Cells % (auto) 0.0, Anion Gap 10, Glomerular Filtration Rate > 60.0, Calcium Level 8.4L CBC/BMP Laboratory Tests 07/06/20 06:47 FSBS Laboratory Tests Test 07/05/20 11:48 07/05/20 16:54 07/05/20 19:51 Range/Units Bedside Glucose (Misc Panel) 203 247 216 70-105 MG/DL Microbiology Microbiology 07/03/20 Abscess Culture - Preliminary, Resulted Staphylococcus Sp Coag Neg 07/03/20 Anaerobic Culture, Resulted Pending 07/01/20 Blood Culture - Preliminary, Resulted No Growth after 72 hours. All specime... 07/01/20 Blood Culture - Preliminary, Resulted No Growth after 72 hours. All specime... 07/01/20 Blood Culture - Preliminary, Resulted No Growth after 72 hours. All specime... Assessment/Plan Date Seen The patient was seen on 07/06/20. Plan/VTE VTE Prophylaxis Ordered?: Yes Plan Assessment: 1. Scrotal abscess, staph, improving on antibiotics post incision and drainage Plan; Continue antibiotics according to sensitivity pattern when available, close observation ISA JIMENES MD Jul 06, 2020 07:41
[2020-07-06 07:50] LABS: ATYPICAL LYMPH 4 % (0-5); BASOPHILS 1 % (0-1); EOSINOPHILS 1 % (0-3); LYMPHOCYTES 22 % (16-44); MONOCYTES 12 % (0-5); NEUTROPHILS 60 % (28-66); PLATELET ESTIMATE NORMAL (NORMAL)
[2020-07-06] MEDS: PANTOPRAZOLE 40MG TAB (PROTONIX) PO SCH (08:22)
[2020-07-06] MEDS: NORCO, ANEXSIA 5/325MG TABLET (HYDROcodone/ACETAMINOPHEN) PO PRN ×3 (08:24→21:26)
[2020-07-06] MEDS: LEVEMIR (INSULIN DETEMIR) 1 UNITS/0.01ML SC SCH (08:25)
[2020-07-06] MEDS: HumaLOG INSULIN (NovoLOG) PER UNIT SC SCH ×4 (08:26→21:00)
[2020-07-06] MEDS: SLF 3 ML SYR IV SCH ×2 (08:31→11:36)
--- NOTE | 2020-07-06 11:21 | IPNPDOC ---
Subjective Date Seen The patient was seen on 07/06/20. Subjective Chief Complaint/HPI Scrotal swelling and pain improving. He is able to ambulate more freely. Objective Physical Examination General Exam: Positive: Alert, Cooperative, No Acute Distress Eye Exam: Positive: PERRLA, Conjunctiva & lids normal, EOMI; Negative: Sclera icteric ENT Exam: Positive: Atraumatic, Mucous membr. moist/pink, Pharynx Normal Neck Exam: Positive: Supple; Negative: JVD, thyromegaly Chest Exam: Positive: Clear to auscultation, Normal air movement Heart Exam: Positive: Rate Normal, Regular Rhythm, Normal S1, Normal S2; Negative: Murmurs, Rubs Abdomen Exam: Positive: Normal bowel sounds, Soft; Negative: Tenderness Male Exam: Positive: Lesions (scrotal swelling less, discharge less. ) Extremity Exam: Negative: Clubbing, Cyanosis, Edema Skin Exam: Positive: Nl turgor and temperature, Other skin issue (eschar at the scrotum next to the scrotal incision. ) Neuro Exam: Positive: Normal Speech, Normal Tone Psych Exam: Positive: Mental status NL, Mood NL, Oriented x 3 Assessment /Plan Assessment 40 year old male with PMH of DM not on any meds, presented to ED with one day history of scrotal pain, no clear modifying factors, denies trauma, poor medical follow up. He was found to have scrotals cellulitis with Scrotal abscess, scrotal cellulitis, and early Kimberli's gangrene. S/p Incision and drainage of scrotum with debridement and Cystoscopy. He was also in early DKA. DKA resolved. continue levemir and lispro sugars acceptable control at present. Scrotal abscess, scrotal cellulitis, and early Kimberli's gangrene. still has some necrotic tissue. S/p Incision and drainage of scrotum with debridement and Cystoscopy. antibiotics to meropenem/doxy cultures staph coagulase negative. [place]. Urology following. Recent +COVID respiratory panel on 06/18/20 was +COVID patient states was routine test - patient had no specific respiratory symptoms discussed with infection control - given asymptomatic and duration >15 days no additional precautions needed DVT prophylaxis lovenox Plan/VTE VTE Prophylaxis Ordered?: Yes VS, I&O, 24H, Fishbone Vital Signs/I&O Vital Signs Date Time Temp Pulse Resp B/P (MAP) Pulse Ox O2 Delivery O2 Flow Rate FiO2 07/06/20 08:54 18 Room Air 07/06/20 06:00 97.2 101 140/88 (105) 99 07/03/20 11:15 12 I&O- Last 24 Hours up to 6 AM 07/06/20 06:00 Intake Total 2520 ml Output Total 1550 ml Balance 970 ml Laboratory Data 24H LABS Laboratory Tests 2 07/05/20 11:48: Bedside Glucose (Misc Panel) 203H 07/05/20 16:54: Bedside Glucose (Misc Panel) 247H 07/05/20 19:51: Bedside Glucose (Misc Panel) 216H 07/06/20 06:47: Neutrophils (%) (Auto) , Nucleated Red Blood Cells % (auto) 0.0, Neutrophils 60, Lymphocytes (Manual) 22, Monocytes (Manual) 12H, Eosinophils (Manual) 1, Basophils (Manual) 1, Atypical Lymphocytes 4, Red Blood Cell Morphology NORMAL, Platelet Estimate NORMAL, Anion Gap 10, Glomerular Filtration Rate > 60.0, Calcium Level 8.4L 07/06/20 11:14: Bedside Glucose (Misc Panel) 228H CBC/BMP Laboratory Tests 07/06/20 06:47 Microbiology Microbiology 07/03/20 Abscess Culture - Preliminary, Resulted Staphylococcus Sp Coag Neg 07/03/20 Anaerobic Culture, Resulted Pending 07/01/20 Blood Culture - Preliminary, Resulted No Growth after 72 hours. All specime... 07/01/20 Blood Culture - Preliminary, Resulted No Growth after 72 hours. All specime... 07/01/20 Blood Culture - Preliminary, Resulted No Growth after 72 hours. All specime... NICOLE AMAYA MD Jul 06, 2020 11:21
[2020-07-06] MEDS: DOXYCYCLINE HYCLATE 100MG TABLET PO SCH ×2 (11:35→21:26)
[2020-07-06 14:00] VITALS: BP 158/105
[2020-07-06 22:00] VITALS: BP 110/90
[2020-07-07] MEDS: SLF 3 ML SYR IV SCH ×2 (02:19→08:03)
[2020-07-07] MEDS: MEROPENEM INJ 1 GM in IV 1 EA IV SCH ×2 (02:20→11:06)
[2020-07-07 06:00] VITALS: BP 130/80
[2020-07-07 06:14] LABS: BASO % 0.6 % (0.0-1.0); EOS # 0.2 10^3/uL (0.0-0.5); EOS % 2.9 % (0.0-3.0); HEMATOCRIT 38.1 % (42.0-52.0); LYMPH # 1.9 10^3/uL (1.5-5.0); MEAN CORPUSCULAR HGB CONC 34.1 g/dl (32.0-36.5); MEAN CORPUSCULAR VOLUME 87.8 fl (80.0-96.0); MONO # 0.8 10^3/uL (0.0-0.8); MONO % 12.4 % (0.0-5.0); NEUTROPHILS # 3.3 10^3/uL (1.5-8.5); NEUTROPHILS % 52.4 % (36.0-66.0); PLATELET COUNT, AUTOMATED 222 10^3/uL (150-450); RED BLOOD COUNT 4.34 10^6/uL (4.30-6.10); WHITE BLOOD COUNT 6.3 10^3/uL (4.0-10.0)
[2020-07-07 06:44] LABS: BLOOD UREA NITROGEN 9 MG/DL (7-18); CALCIUM LEVEL 8.3 MG/DL (8.5-10.1); CARBON DIOXIDE LEVEL 30 MEQ/L (21-32); CHLORIDE LEVEL 102 MEQ/L (98-107); CREATININE FOR GFR 0.59 MG/DL (0.70-1.30); GLOMERULAR FILTRATION RATE > 60.0 (>60); GLUCOSE, FASTING 195 MG/DL (70-100); SODIUM LEVEL 138 MEQ/L (136-145)
[2020-07-07] MEDS: HumaLOG INSULIN (NovoLOG) PER UNIT SC SCH ×2 (08:04→12:00)
[2020-07-07] MEDS: LEVEMIR (INSULIN DETEMIR) 1 UNITS/0.01ML SC SCH (08:04)
[2020-07-07] MEDS: DOXYCYCLINE HYCLATE 100MG TABLET PO SCH (08:05)
[2020-07-07] MEDS: NORCO, ANEXSIA 5/325MG TABLET (HYDROcodone/ACETAMINOPHEN) PO PRN (08:05)
[2020-07-07] MEDS: PANTOPRAZOLE 40MG TAB (PROTONIX) PO SCH (08:05)
--- NOTE | 2020-07-07 08:37 | IPNPDOC ---
Subjective Review oF Systems Chief Complaint The patient is a 40-year-old male admitted with a reason for visit of Cellulitis Of Scrotum, Dka. Events since Last Encounter Patient states she is having less discomfort. He states the drainage from his wound has been less. Vital signs revealed patient to be afebrile overnight Wound cultures growing staph Objective Physical Examination General Exam: Alert, Cooperative, No Acute Distress Heart Exam: Positive: Rate Normal, Regular Rhythm, Normal S1, Normal S2; Negative: Murmurs, Rubs Other physical findings There is less erythema and less edema of the scrotum. There are no masses palpa ble. There is no area of fluctuance present. Vital Signs/I&O Vital Signs Date Time Temp Pulse Resp B/P (MAP) Pulse Ox O2 Delivery O2 Flow Rate FiO2 07/07/20 08:05 18 Room Air 07/07/20 06:00 96.9 107 130/80 (97) 99 07/03/20 11:15 12 I&O- Last 24 Hours up to 6 AM 07/07/20 06:00 Intake Total 800 ml Output Total 500 ml Balance 300 ml Laboratory Data Labs 24H Laboratory Tests 2 07/06/20 11:14: Bedside Glucose (Misc Panel) 228H 07/06/20 16:36: Bedside Glucose (Misc Panel) 237H 07/06/20 20:32: Bedside Glucose (Misc Panel) 198H 07/07/20 05:46: Immature Granulocyte % (Auto) 1.7, Neutrophils (%) (Auto) 52.4, Lymphocytes (%) (Auto) 30.0, Monocytes (%) (Auto) 12.4H, Eosinophils (%) (Auto) 2.9, Basophils (%) (Auto) 0.6, Neutrophils # (Auto) 3.3, Lymphocytes # (Auto) 1.9, Monocytes # (Auto) 0.8, Eosinophils # (Auto) 0.2, Basophils # (Auto) 0.0, Nucleated Red Blood Cells % (auto) 0.0, Anion Gap 6L, Glomerular Filtration Rate > 60.0, Calcium Level 8.3L CBC/BMP Laboratory Tests 07/07/20 05:46 FSBS Laboratory Tests Test 07/06/20 11:14 07/06/20 16:36 07/06/20 20:32 Range/Units Bedside Glucose (Misc Panel) 228 237 198 70-105 MG/DL Microbiology Microbiology 07/03/20 Abscess Culture - Preliminary, Resulted Staphylococcus Sp Coag Neg 07/03/20 Anaerobic Culture, Resulted Pending 07/01/20 Blood Culture - Final, Complete NO GROWTH AFTER 5 DAYS 07/01/20 Blood Culture - Final, Complete NO GROWTH AFTER 5 DAYS 07/01/20 Blood Culture - Final, Complete NO GROWTH AFTER 5 DAYS Assessment/Plan Date Seen The patient was seen on 07/07/20. Plan/VTE VTE Prophylaxis Ordered?: Yes Plan Assessment: Scrotal abscess, staph, improving post-incision and drainage and antibiotics Recommendation: Discussed with the patient possibility of continuing outpatient antibiotics and local wound care at home. This decision will be made by the hospitalist. ISA JIMENES MD Jul 07, 2020 08:37
[2020-07-07] MEDS ORDERED: GLIM4TAB5 PO (09:31)
[2020-07-07] MEDS ORDERED: DOXY-350 PO (09:31)
[2020-07-07] MEDS ORDERED: HYDR-3715 PO (09:31)
--- NOTE | 2020-07-08 17:28 | DS.PDOC ---
Discharge Summary General Date of Admission Jul 01, 2020 at 22:15 Date of Discharge 07/07/20 Discharge Summary PROCEDURES PERFORMED DURING STAY: S/p Incision and drainage of scrotum with debridement and Cystoscopy. DISCHARGE DIAGNOSES: Scrotal abscess, scrotal cellulitis, and early Kimberli's gangrene. DKA Recent +COVID on 06/18/20 COMPLICATIONS/CHIEF COMPLAINT: Cellulitis Of Scrotum, Dka. HOSPITAL COURSE: 40 year old male with PMH of DM not on any meds, presented to ED with one day history of scrotal pain, no clear modifying factors, denies trauma, poor medical follow up. He was found to have scrotals cellulitis with Scrotal abscess, scrotal cellulitis, and early Kimberli's gangrene. S/p Incision and drainage of scrotum with debridement and Cystoscopy. He was also in early DKA. DKA resolved. continue levemir and lispro sugars acceptable control at present. Scrotal abscess, scrotal cellulitis, and early Kimberli's gangrene. still has some necrotic tissue. S/p Incision and drainage of scrotum with debridement and Cystoscopy. antibiotics to meropenem/doxy cultures staph coagulase negative. [place]. Urology following. Recent +COVID respiratory panel on 06/18/20 was +COVID patient states was routine test - patient had no specific respiratory symptoms discussed with infection control - given asymptomatic and duration >15 days no additional precautions needed DISCHARGE MEDICATIONS: Please see below. ALLERGIES: Please see below. PHYSICAL EXAMINATION ON DISCHARGE: VITAL SIGNS: Please see below. General Exam: Positive: Alert, Cooperative, No Acute Distress Eye Exam: Positive: PERRLA, Conjunctiva & lids normal, EOMI; Negative: Sclera icteric ENT Exam: Positive: Atraumatic, Mucous membr. moist/pink, Pharynx Normal Neck Exam: Positive: Supple; Negative: JVD, thyromegaly Chest Exam: Positive: Clear to auscultation, Normal air movement Heart Exam: Positive: Rate Normal, Regular Rhythm, Normal S1, Normal S2; Negative: Murmurs, Rubs Abdomen Exam: Positive: Normal bowel sounds, Soft; Negative: Tenderness Male Exam: Positive: Lesions (scrotal swelling less, discharge less. ) Extremity Exam: Negative: Clubbing, Cyanosis, Edema Skin Exam: Positive: Nl turgor and temperature, Other skin issue (eschar at the scrotum next to the scrotal incision. ) Neuro Exam: Positive: Normal Speech, Normal Tone Psych Exam: Positive: Mental status NL, Mood NL, Oriented x 3 LABORATORY DATA: Please see below. ACTIVITY: [As tolerated]. DIET: Carb consistent DISPOSITION: 01 Home, Self-Care. DISCHARGE INSTRUCTIONS: Follow up urology in 1 week PMD in 1 week DISCHARGE CONDITION: [Stable]. TIME SPENT ON DISCHARGE: 35 minutes. Vital Signs/I&Os Vital Signs Date Time Temp Pulse Resp B/P (MAP) Pulse Ox O2 Delivery O2 Flow Rate FiO2 07/07/20 08:35 18 Room Air 07/07/20 06:00 96.9 107 130/80 (97) 99 07/03/20 11:15 12 I&O- Last 24 Hours up to 6 AM 07/08/20 07:00 Intake Total 350 ml Output Total 1200 ml Balance -850 ml Microbiology Microbiology 07/03/20 Abscess Culture - Final, Resulted Staphylococcus Epidermidis 07/03/20 Anaerobic Culture, Resulted Pending 07/01/20 Blood Culture - Final, Complete NO GROWTH AFTER 5 DAYS 07/01/20 Blood Culture - Final, Complete NO GROWTH AFTER 5 DAYS 07/01/20 Blood Culture - Final, Complete NO GROWTH AFTER 5 DAYS Discharge Medications Scheduled Doxycycline Monohydrate (Doxycycline) 100 Mg Capsule, 100 MG PO BID Glimepiride (Glimepiride) 4 Mg Tablet, 4 MG PO DAILY Scheduled PRN Hydrocodone/Acetaminophen (Hydrocodone-Acetamin 5-325 mg) 1 Each Tablet, 1-2 TAB PO Q8HP PRN for MODERATE PAIN (PS 5-7) Allergies Coded Allergies: cefaclor (Verified Allergy, Intermediate, unknown, 07/01/20) NICOLE AMAYA MD Jul 08, 2020 17:28
== END 2020-07-07 12:40 | disposition home or self-care (01) | DRG 501 ==
LOC: M ED 19:13 → M ED INP 22:15 → M PCU 07-02 00:12 → M MS5PR 07-03 21:31
PROVIDERS: ADMIT Family Medicine; ATTEND Internal Medicine Nephrology
PROC: 0TJB8ZZ Inspection of Bladder, Via Natural or Artificial Opening Endoscopic (ICD-10-PCS; 2020-07-03)
PROC: 0HDAXZZ Extraction of Inguinal Skin, External Approach (ICD-10-PCS; 2020-07-03)
PROC: 0V950ZX Drainage of Scrotum, Open Approach, Diagnostic (ICD-10-PCS; principal; 2020-07-03 12:00)
DX: N49.3 Fournier gangrene (principal); E11.10 Type 2 diabetes mellitus with ketoacidosis without coma; R00.0 Tachycardia, unspecified; F17.210 Nicotine dependence, cigarettes, uncomplicated; Z88.1 Allergy status to other antibiotic agents; Z86.16 Personal history of COVID-19; B95.8 Unspecified staphylococcus as the cause of diseases classified elsewhere; N49.2 Inflammatory disorders of scrotum

== ENCOUNTER 2024-06-05 15:56 | Inpatient (IN) | payer SELFPAY ==
[~2024-06-05] VITALS: Ht 170.2 cm; Wt 88.1 kg
[~2024-06-05 15:56] MED LIST changes: +DOXY-440 PO; +GLIM4TAB5 PO; +HYDR-3715 PO
[2024-06-05 16:30] LABS: BASO % 0.4 % (0.0-1.0); EOS # 0.2 10^3/uL (0.0-0.5); EOS % 2.7 % (0.0-3.0); HEMATOCRIT 53.6 % (42.0-52.0); HEMOGLOBIN 18.6 g/dl (13.5-17.5); LYMPH # 0.8 10^3/uL (1.5-5.0); LYMPH % 14.6 % (24.0-44.0); MEAN CORPUSCULAR HGB CONC 34.7 g/dl (32.0-36.5); MEAN CORPUSCULAR VOLUME 89.3 fl (80.0-96.0); MONO # 0.5 10^3/uL (0.0-0.8); MONO % 9.3 % (2.0-8.0); NEUTROPHILS % 72.6 % (36.0-66.0); PLATELET COUNT, AUTOMATED 127 10^3/uL (150-450); WHITE BLOOD COUNT 5.5 10^3/uL (4.0-10.0)
[2024-06-05 16:53] LABS: INR 1.03; PARTIAL THROMBOPLASTIN TIME 29.8 SECONDS (24.8-34.2); PROTHROMBIN TIME 13.9 SECONDS (12.5-14.5)
[2024-06-05 17:01] LABS: ETHYL ALCOHOL (ETHANOL) < 0.003 % (0.000-0.010)
[2024-06-05 17:03] LABS: ALBUMIN 3.2 G/DL (3.2-5.2); ALKALINE PHOSPHATASE 63 U/L (40-129); ALT/SGPT 28 U/L (7.0-40); AST/SGOT 22 U/L (<34); BILIRUBIN,DIRECT 0.3 MG/DL (<0.4); BILIRUBIN,TOTAL 0.8 MG/DL (0.3-1.2); BLOOD UREA NITROGEN 22 MG/DL (9-23); CALCIUM LEVEL 9.2 MG/DL (8.5-10.1); CARBON DIOXIDE LEVEL 18 MMOL/L (20-31); CHLORIDE LEVEL 92 MMOL/L (98-107); CK-MB VALUE MASS 1.7 NG/ML (<3.6); CREATININE FOR GFR 0.86 MG/DL (0.70-1.30); GLOMERULAR FILTRATION RATE > 60.0 (>60); GLUCOSE, FASTING 305 MG/DL (60-100); POTASSIUM SERUM 4.7 MMOL/L (3.5-5.1); SODIUM LEVEL 127 MMOL/L (136-145); TOTAL PROTEIN 7.1 G/DL (5.7-8.2)
[2024-06-05 17:16] LABS: LIPASE 106 U/L (12-53)
[2024-06-05] MEDS ORDERED: ISOVUE-370 76% 100ML VIAL As Ordered ONE (17:16)
[2024-06-05 17:36] LABS: ACETONE/KETONE > 4.50 MMOL/L (0.02-0.27); CPK CREATINE PHOSPHOKINASE 135 U/L (46-171); MB/CK RELATIVE INDEX 1.25 (< OR =4)
[2024-06-05 18:02] LABS: VENOUS BASE EXCESS -7.7 (-2.0-2.0); VENOUS HCO3 15.9 MMOL/L (23.0-27.0); VENOUS O2 SATURATION 82.4 % (60.0-80.0); VENOUS PARTIAL PRESSURE CO2 29.3 mmHg (38.0-50.0); VENOUS PH 7.353 UNITS (7.330-7.430); VENOUS TOTAL CO2 16.8 MMOL/L (24.0-28.0)
[2024-06-05] MEDS: LevoFLOXacin IV 750 MG in IV 1 EA IV ONE (18:13)
[2024-06-05 18:15] LABS: KETONE, URINE AUTO RFX 1+ mg/dL (NEGATIVE); LEUKOCYTE ESTERASE UR AUTO RFX NEGATIVE (NEGATIVE); MUCUS, URINE RFX SMALL (NEGATIVE); NITRITE, URINE AUTO RFX NEGATIVE (NEGATIVE); RBC, URINE AUTO RFX 8 /HPF (0-3); SQUAM EPITHELIAL CELL UR AURFX 0 /HPF (0-6); WBC, URINE AUTO RFX 1 /HPF (0-3)
[2024-06-05] MEDS: OXAZEPAM 15MG CAP PO ONE (18:25)
[2024-06-05] MEDS: ACETAMINOPHEN 325 MG TAB PO ONE (18:25)
[2024-06-05 18:50] LABS: CK-MB VALUE MASS 1.9 NG/ML (<3.6)
[2024-06-05 18:57] LABS: MB/CK RELATIVE INDEX 1.43 (< OR =4)
[2024-06-05] MEDS: MULTIVITAMIN -ADULT INJECTION 10 ML, THIAMINE INJection 100 MG, FOLIC ACID 1 MG in NS (... IV ONE (19:07)
[2024-06-05] MEDS: HumuLIN R (REGULAR) INSULIN (NovoLIN R) **100U/ML** PER UNIT IV ONE (19:07)
[2024-06-05] MEDS: PANTOPRAZOLE 40MG VIAL IV ONE (20:43)
[2024-06-05 20:45] LABS: VENOUS BASE EXCESS -7.6 (-2.0-2.0); VENOUS HCO3 17.9 MMOL/L (23.0-27.0); VENOUS O2 SATURATION 62.7 % (60.0-80.0); VENOUS PARTIAL PRESSURE CO2 37.2 mmHg (38.0-50.0); VENOUS PARTIAL PRESSURE O2 33.4 mmHg (30.0-50.0); VENOUS PH 7.301 UNITS (7.330-7.430); VENOUS STANDARD HCO3 17.6 MMOL/L; VENOUS TOTAL CO2 19.1 MMOL/L (24.0-28.0)
[2024-06-05] MEDS ORDERED: MOM 30ML SUSPENSION UDC PO PRN (20:45)
[2024-06-05] MEDS ORDERED: MAALOX 30 ML SUSP *UDC PO PRN (20:45)
[2024-06-05 21:29] LABS: ACETONE/KETONE 3.01 MMOL/L (0.02-0.27)
[2024-06-05 21:30] LABS: ALBUMIN 2.8 G/DL (3.2-5.2); ALKALINE PHOSPHATASE 53 U/L (40-129); ALT/SGPT 26 U/L (7.0-40); AST/SGOT 18 U/L (<34); BILIRUBIN,TOTAL 0.7 MG/DL (0.3-1.2); BLOOD UREA NITROGEN 24 MG/DL (9-23); CALCIUM LEVEL 7.8 MG/DL (8.5-10.1); CARBON DIOXIDE LEVEL 20 MMOL/L (20-31); CHLORIDE LEVEL 99 MMOL/L (98-107); CREATININE FOR GFR 0.83 MG/DL (0.70-1.30); GLOMERULAR FILTRATION RATE > 60.0 (>60); GLUCOSE, FASTING 177 MG/DL (60-100); POTASSIUM SERUM 4.4 MMOL/L (3.5-5.1); SODIUM LEVEL 131 MMOL/L (136-145)
[2024-06-05 21:31] LABS: OSMOLALITY SERUM 287 MOSM/KG (275-295)
[2024-06-05] MEDS: LR 1,000 ML IV ONE (21:35)
[2024-06-05] MEDS: DOCUSATE SODIUM 100MG CAPSULE PO SCH (21:36)
[2024-06-05] MEDS ORDERED: HOME MED LIST COMPLETE! XX SCH (21:55)
[2024-06-05] MEDS ORDERED: ACETAMINOPHEN 325 MG TAB PO PRN (22:00)
[2024-06-05] MEDS: AZITHROMYCIN 250MG TABLET PO SCH (22:13)
[2024-06-05] MEDS: OSELTAMIVIR PHOSPHATE 75 MG CAP (TAMIFLU) PO SCH (22:13)
[2024-06-05] MEDS: KCL 10MEQ/100ML SWI (KRUN) 10 MEQ in IV 1 EA IV ONE (22:18)
[2024-06-06] MEDS: INSULIN LISPRO (NovoLOG) PER UNIT SC SCH ×2 (00:28→08:29)
[2024-06-06 06:32] LABS: ALBUMIN 2.7 G/DL (3.2-5.2); ALKALINE PHOSPHATASE 50 U/L (40-129); ALT/SGPT 24 U/L (7.0-40); AST/SGOT 20 U/L (<34); BILIRUBIN,TOTAL 0.7 MG/DL (0.3-1.2); BLOOD UREA NITROGEN 20 MG/DL (9-23); CALCIUM LEVEL 7.9 MG/DL (8.5-10.1); CARBON DIOXIDE LEVEL 20 MMOL/L (20-31); CHLORIDE LEVEL 100 MMOL/L (98-107); CREATININE FOR GFR 0.66 MG/DL (0.70-1.30); GLOMERULAR FILTRATION RATE > 60.0 (>60); GLUCOSE, FASTING 174 MG/DL (60-100); PHOSPHORUS LEVEL 2.6 MG/DL (2.5-4.9); POTASSIUM SERUM 4.2 MMOL/L (3.5-5.1); SODIUM LEVEL 133 MMOL/L (136-145); TOTAL PROTEIN 5.8 G/DL (5.7-8.2)
[2024-06-06 06:38] LABS: PROCALCITONIN 0.94 ng/ml
[2024-06-06] MEDS ORDERED: DEXTROSE 50% 50ML SYRINGE IV PRN (07:00)
[2024-06-06] MEDS ORDERED: GLUCAGON INJ 1MG VIAL SC PRN (07:00)
[2024-06-06] MEDS ORDERED: GLUCOSE 4 GM CHEW PO PRN (07:00)
[2024-06-06 08:08] LABS: VENOUS BASE EXCESS -4.6 (-2.0-2.0); VENOUS O2 SATURATION 64.5 % (60.0-80.0); VENOUS PARTIAL PRESSURE CO2 40.5 mmHg (38.0-50.0); VENOUS PARTIAL PRESSURE O2 33.7 mmHg (30.0-50.0); VENOUS PH 7.332 UNITS (7.330-7.430); VENOUS STANDARD HCO3 19.9 MMOL/L; VENOUS TOTAL CO2 22.2 MMOL/L (24.0-28.0)
[2024-06-06 08:15] LABS: BASO % 0.2 % (0.0-1.0); EOS % 0.7 % (0.0-3.0); HEMATOCRIT 50.1 % (42.0-52.0); HEMOGLOBIN 17.2 g/dl (13.5-17.5); LYMPH # 0.9 10^3/uL (1.5-5.0); LYMPH % 20.9 % (24.0-44.0); MEAN CORPUSCULAR HEMOGLOBIN 30.9 pg (27.0-33.0); MEAN CORPUSCULAR HGB CONC 34.3 g/dl (32.0-36.5); MEAN CORPUSCULAR VOLUME 90.1 fl (80.0-96.0); MONO # 0.4 10^3/uL (0.0-0.8); MONO % 10.7 % (2.0-8.0); NEUTROPHILS # 2.8 10^3/uL (1.5-8.5); PLATELET COUNT, AUTOMATED 101 10^3/uL (150-450); RED BLOOD COUNT 5.56 10^6/uL (4.30-6.10); WHITE BLOOD COUNT 4.1 10^3/uL (4.0-10.0)
[2024-06-06] MEDS: HEPARIN SOD (PORCINE) 5000UNITS/ML 1ML VIAL/SYRINGE SC SCH (08:27)
[2024-06-06] MEDS: guaiFENesin ER TABLET 600 MG TAB PO SCH (08:27)
[2024-06-06] MEDS: LR 1,000 ML IV SCH (08:29)
[2024-06-06 08:32] VITALS: BP 123/74; TEMP 97.9; O2SAT 98
[2024-06-06] MEDS: IPRATROPIUM 0.5MG/ALBUTEROL 2.5MG INH SOL UD 3ML (DUONEB) NEB SCH (08:33)
[2024-06-06] MEDS ORDERED: BLOOKIT21 XX (09:47)
[2024-06-06] MEDS ORDERED: INSUHUMDS SC (09:47)
[2024-06-06] MEDS ORDERED: INSU1MIS20 SC (09:47)
[2024-06-06] MEDS ORDERED: GLUC1TES2 XX (09:47)
[2024-06-06] MEDS ORDERED: ALCOPAD25 TOP (09:47)
[2024-06-06] MEDS ORDERED: MUCI600T31 PO (09:47)
[2024-06-06] MEDS ORDERED: INSULANT SC (09:47)
[2024-06-06] MEDS ORDERED: OSEL75CA2 PO (09:47)
[2024-06-06] MEDS ORDERED: LANC30MI XX (09:47)
[2024-06-06] MEDS ORDERED: AZIT500T5 PO (09:47)
[2024-06-06] MEDS ORDERED: VENTAER INH (09:47)
[2024-06-06 11:37] LABS: BLOOD UREA NITROGEN 22 MG/DL (9-23); CALCIUM LEVEL 8.3 MG/DL (8.5-10.1); CARBON DIOXIDE LEVEL 19 MMOL/L (20-31); CHLORIDE LEVEL 98 MMOL/L (98-107); CREATININE FOR GFR 0.67 MG/DL (0.70-1.30); GLOMERULAR FILTRATION RATE > 60.0 (>60); GLUCOSE, FASTING 287 MG/DL (60-100); POTASSIUM SERUM 4.5 MMOL/L (3.5-5.1); SODIUM LEVEL 129 MMOL/L (136-145)
[2024-06-06] MEDS: LEVEMIR (INSULIN DETEMIR) 1 UNITS/0.01ML SC ONE (12:00)
[2024-06-06] MEDS ORDERED: INSULIN LISPRO (NovoLOG) PER UNIT SC SCH (21:00)
== END 2024-06-06 12:03 | disposition left against medical advice (07) | DRG 139 ==
LOC: M ED 15:56 → M ED INP 20:42
PROVIDERS: ADMIT Student in an Organized Health Care Education/Training Program; ATTEND Internal Medicine
DX: J10.00 Influenza due to other identified influenza virus with unspecified type of pneumonia (principal); E87.20 Acidosis, unspecified; D69.6 Thrombocytopenia, unspecified; E11.65 Type 2 diabetes mellitus with hyperglycemia; Z88.1 Allergy status to other antibiotic agents; F10.10 Alcohol abuse, uncomplicated; J12.9 Viral pneumonia, unspecified; Z91.190 Patient's noncompliance with other medical treatment and regimen due to financial hardship